=== PATIENT | female | born 1935 | race Caucasian/White ===

== ENCOUNTER → 2017-04-25 | Outpatient (CLI) | payer MEDICARE ==
[~2017-04-25] MED LIST: CALAN,ISOPTIN80 MG; CARDIZEM120 MG PO; CIPROFLOXACIN500 MG PO; COMPAZINE10 MG PO; COREG12.5 MG PO; COREG25 MG PO; COREG3.125 MG PO; CYMBALTA30 MG PO; ENALAPRIL MALEAT5 MG PO; ENALAPRIL10 MG PO; GLYBURIDE5 MG PO; HUMALOG100 U/ML SC; LEVEMIR10 ML SC; LIDODERM 5% PATC1 EA T; LIPITOR10 MG PO; LIPITOR40 MG PO; METFORMIN1000 MG PO; METFORMIN500 MG; Motrin,Rufen400 MG PO; PLAVIX75 MG PO; POTASSIUM CHLO10 MEQ PO; REMERON15 M2 PO; RESTORIL15 MG PO; TRAMADOL HCL50 MG PO; TRAMADOL50 MG PO; ULTRAM50 MG PO; VERAPAMIL120 MG PO; VITAMIN D2000 IU PO; VITAMIN D50000 I3 PO; XANAX0.25 MG PO; ZYVOX600 MG PO
== END | disposition home or self-care (01) ==
LOC: US 14:30
DX: N93.9 Abnormal uterine and vaginal bleeding, unspecified (principal); N95.0 Postmenopausal bleeding

== ENCOUNTER → 2017-05-09 | Outpatient (CLI) | payer MEDICARE | END | disposition home or self-care (01) | LOC: RAD 12:21 | DX: M81.0 Age-related osteoporosis without current pathological fracture (principal) ==

== ENCOUNTER 2017-05-24 07:12 | Emergency (ER) | payer MEDICARE ==
[2017-05-24 07:44] LABS: BASO % 0.2 % (0.0-1.0); EOS # 0.1 10*3/uL (0.0-0.4); EOS % 1.6 % (1.0-4.0); HEMATOCRIT 37.3 % (37.0-47.0); HEMOGLOBIN 12.7 g/dl (12.0-16.0); LYMPH # 1.1 10*3/uL (1.3-4.4); LYMPH % 13.3 % (27.0-41.0); MEAN CELL VOLUME 94.4 fl (81.0-99.0); MEAN CORPUSCULAR HGB 32.2 pg (27.0-31.0); MEAN PLATELET VOLUME 8.9 fl (9.6-12.3); MONO # 0.6 10*3/uL (0.1-1.0); MONO % 7.7 % (3.0-9.0); NEUT # 6.3 10*3/uL (2.3-7.9); NEUT % 76.7 % (47.0-73.0); PLATELET COUNT AUTOMATED 193 10*3/uL (130-400); RED BLOOD COUNT 3.95 10*6/uL (4.10-5.10); RED CELL DISTRI WIDTH 12.9 % (0-14.5); WHITE BLOOD COUNT 8.2 10*3/uL (4.8-10.8)
[2017-05-24 08:01] LABS: BUN 10 mg/dl (7-24); CHLORIDE 100 mmol/L (98-107); CREATININE 0.66 mg/dL (0.55-1.02); MAGNESIUM 1.5 mg/dL (1.5-2.1); POTASSIUM 3.6 mmol/L (3.5-5.1); SODIUM 136 mmol/L (136-145)
== END 2017-05-24 08:45 ==
LOC: ED 07:12
PROVIDERS: Emergency Medicine
DX: G25.2 Other specified forms of tremor (principal); I25.10 Atherosclerotic heart disease of native coronary artery without angina pectoris; G89.4 Chronic pain syndrome; M19.90 Unspecified osteoarthritis, unspecified site; E11.9 Type 2 diabetes mellitus without complications; I10 Essential (primary) hypertension; I35.0 Nonrheumatic aortic (valve) stenosis; Z95.5 Presence of coronary angioplasty implant and graft; Z98.890 Other specified postprocedural states; Z79.899 Other long term (current) drug therapy; Z88.5 Allergy status to narcotic agent; Z88.0 Allergy status to penicillin; Z79.4 Long term (current) use of insulin

== ENCOUNTER 2017-07-01 09:34 | Emergency (ER) | payer MEDICARE ==
[~2017-07-01] VITALS: Ht 167.6 cm
[2017-07-01] MEDS ORDERED: EPIPEN 2-P0.3 MG/0.3 IJ (10:03)
[2017-07-01] MEDS ORDERED: PREDNISONE10 MG PO (10:04)
== END 2017-07-01 14:22 | disposition home or self-care (01) ==
LOC: ED 09:34
DX: T78.3XXA Angioneurotic edema, initial encounter (principal); R03.0 Elevated blood-pressure reading, without diagnosis of hypertension; Z88.0 Allergy status to penicillin; Z88.1 Allergy status to other antibiotic agents; Z79.899 Other long term (current) drug therapy

== ENCOUNTER 2017-11-17 06:56 | Inpatient (IN) | payer MEDICARE ==
[~2017-11-17] VITALS: Ht 167.6 cm; Wt 98.7 kg
[~2017-11-17 06:56] MED LIST changes: +EPIPEN 2-P0.3 MG/0.3 IJ; -LEVEMIR10 ML SC; +LEVEMIR100 UNIT/1 SC; +PREDNISONE10 MG PO; +TAMIFLU30 MG PO
[2017-11-17 06:58] VITALS: BP 147/65
[2017-11-17 07:00] VITALS: BP 147/65
[2017-11-17 07:30] VITALS: BP 137/64
[2017-11-17 07:41] LABS: BASO % 0.2 % (0.0-1.0); EOS # 0.1 10*3/uL (0.0-0.4); EOS % 2.2 % (1.0-4.0); HEMATOCRIT 38.7 % (37.0-47.0); LYMPH # 1.3 10*3/uL (1.3-4.4); LYMPH % 23.3 % (27.0-41.0); MEAN CELL VOLUME 93.5 fl (81.0-99.0); MEAN CORPUSCULAR HGB 31.4 pg (27.0-31.0); MEAN CORPUSCULAR HGB CONC 33.6 g/dl (33.0-37.0); MONO # 0.5 10*3/uL (0.1-1.0); MONO % 9.3 % (3.0-9.0); NEUT # 3.5 10*3/uL (2.3-7.9); NEUT % 64.8 % (47.0-73.0); PLATELET COUNT AUTOMATED 229 10*3/uL (130-400); RED BLOOD COUNT 4.14 10*6/uL (4.10-5.10); RED CELL DISTRI WIDTH 13.4 % (0-14.5); WHITE BLOOD COUNT 5.4 10*3/uL (4.8-10.8)
[2017-11-17 07:50] LABS: ACT PARTIAL THROMBO TIME 29.6 SECONDS (20.8-31.5)
[2017-11-17 07:53] LABS: ALBUMIN 3.3 gm/dl (3.1-4.5); CREATININE 2.26 mg/dL (0.55-1.02); POTASSIUM 5.2 mmol/L (3.5-5.1); TOTAL PROTEIN 7.5 gm/dL (6.4-8.2)
[2017-11-17 07:56] LABS: TROPONIN I 0.102 ng/ml (<0.045)
[2017-11-17 10:16] VITALS: BP 147/68; BP 147/82
[2017-11-17 16:00] VITALS: BP 121/46
[2017-11-17] MEDS ORDERED: ANTACID SUSPEN355 M1 PO (18:06)
[2017-11-17] MEDS ORDERED: ATIVAN0.5 MG PO (18:07)
[2017-11-17] MEDS ORDERED: DUONEB 3 MG/3 ML3 M1 INH (18:08)
[2017-11-17] MEDS ORDERED: FOSAMAX70 M1 PO (18:10)
[2017-11-17] MEDS ORDERED: HUMALOG100 UNIT/2 SQ (18:11)
[2017-11-17] MEDS ORDERED: INVANZ1 GM/50 ML IM (18:15)
[2017-11-17] MEDS ORDERED: LOSARTAN POTASS25 M1 PO (18:17)
[2017-11-17] MEDS ORDERED: MILK OF MA400 MG/5 M PO (18:19)
[2017-11-17] MEDS ORDERED: MIRALAX119 GM PO (18:21)
[2017-11-17] MEDS ORDERED: Oscal,Oyster S500 MG PO (18:22)
[2017-11-17] MEDS ORDERED: ROBITUSSIN-DM 110 ML PO (18:24)
[2017-11-17] MEDS ORDERED: THERA-D4000 UNIT PO (18:29)
[2017-11-17] MEDS ORDERED: SIMVASTATIN20 MG PO (18:30)
[2017-11-17 20:00] VITALS: BP 125/54
[2017-11-18 00:04] VITALS: BP 134/51
[2017-11-18 05:51] LABS: BASO % 0.2 % (0.0-1.0); EOS # 0.1 10*3/uL (0.0-0.4); EOS % 1.8 % (1.0-4.0); HEMATOCRIT 35.4 % (37.0-47.0); HEMOGLOBIN 12.2 g/dl (12.0-16.0); LYMPH # 1.4 10*3/uL (1.3-4.4); LYMPH % 24.3 % (27.0-41.0); MEAN CELL VOLUME 91.7 fl (81.0-99.0); MEAN CORPUSCULAR HGB 31.6 pg (27.0-31.0); MEAN CORPUSCULAR HGB CONC 34.5 g/dl (33.0-37.0); MEAN PLATELET VOLUME 8.7 fl (9.6-12.3); MONO # 0.6 10*3/uL (0.1-1.0); MONO % 11.3 % (3.0-9.0); NEUT # 3.5 10*3/uL (2.3-7.9); NEUT % 62.2 % (47.0-73.0); PLATELET COUNT AUTOMATED 212 10*3/uL (130-400); RED BLOOD COUNT 3.86 10*6/uL (4.10-5.10); RED CELL DISTRI WIDTH 13.5 % (0-14.5); WHITE BLOOD COUNT 5.6 10*3/uL (4.8-10.8)
[2017-11-18 06:25] LABS: POTASSIUM 4.5 mmol/L (3.5-5.1)
[2017-11-18 06:35] LABS: CREATININE 1.58 mg/dL (0.55-1.02); FREE T4 1.09 ng/dl (0.76-1.46); THYROID STIM HORMONE (HS) 2.46 uIU/ml (0.358-4.75); TOTAL PROTEIN 6.8 gm/dL (6.4-8.2)
[2017-11-18 07:54] LABS: VITAMIN D, 25-HYDROXY 25.3 ng/mL (30-100)
[2017-11-18 08:00] VITALS: BP 150/54
[2017-11-18 12:00] VITALS: BP 130/62
[2017-11-18 16:00] VITALS: BP 138/82
[2017-11-18 20:00] VITALS: BP 134/62
[2017-11-19 00:07] VITALS: BP 155/50
[2017-11-19 06:03] LABS: BASO % 0.2 % (0.0-1.0); EOS # 0.1 10*3/uL (0.0-0.4); EOS % 1.2 % (1.0-4.0); HEMATOCRIT 33.8 % (37.0-47.0); HEMOGLOBIN 11.8 g/dl (12.0-16.0); LYMPH # 1.4 10*3/uL (1.3-4.4); LYMPH % 27.7 % (27.0-41.0); MEAN CELL VOLUME 91.8 fl (81.0-99.0); MEAN CORPUSCULAR HGB 32.1 pg (27.0-31.0); MEAN CORPUSCULAR HGB CONC 34.9 g/dl (33.0-37.0); MEAN PLATELET VOLUME 8.8 fl (9.6-12.3); MONO # 0.7 10*3/uL (0.1-1.0); MONO % 12.9 % (3.0-9.0); NEUT % 57.6 % (47.0-73.0); PLATELET COUNT AUTOMATED 209 10*3/uL (130-400); RED BLOOD COUNT 3.68 10*6/uL (4.10-5.10); RED CELL DISTRI WIDTH 13.4 % (0-14.5); WHITE BLOOD COUNT 5.1 10*3/uL (4.8-10.8)
[2017-11-19 06:36] LABS: ALKALINE PHOSPHATASE 74 U/L (45-117); CHLORIDE 105 mmol/L (98-107); CREATININE 0.89 mg/dL (0.55-1.02); POTASSIUM 4.1 mmol/L (3.5-5.1); SGOT/AST 22 IU/L (3-35); SGPT/ALT 17 U/L (12-78); SODIUM 139 mmol/L (136-145); TOTAL PROTEIN 6.7 gm/dL (6.4-8.2)
[2017-11-19 06:45] LABS: BUN 25 mg/dl (7-24)
[2017-11-19 08:00] VITALS: BP 138/61
[2017-11-19 12:00] VITALS: BP 145/79
[2017-11-19 16:00] VITALS: BP 145/63
[2017-11-19 20:00] VITALS: BP 124/49
[2017-11-20] VITALS: BP 144/67
[2017-11-20 08:00] VITALS: BP 134/40
[2017-11-20 12:00] VITALS: BP 114/83
[2017-11-20] MEDS ORDERED: TAMIFLU 75MG CA75 MG PO (12:42)
[2017-11-20] MEDS ORDERED: AZITHROMYCIN500 M2 PO (12:42)
== END 2017-11-20 15:35 | disposition other institution (70) | DRG 682 ==
LOC: ED 06:56 → 4E 08:43 → EDHOLD 08:43 → 4E 09:00
PROVIDERS: Emergency Medicine; Internal Medicine; Registered Nurse
DX: N17.9 Acute kidney failure, unspecified (principal); J10.00 Influenza due to other identified influenza virus with unspecified type of pneumonia; E11.65 Type 2 diabetes mellitus with hyperglycemia; I24.8 Other forms of acute ischemic heart disease; E87.5 Hyperkalemia; E87.1 Hypo-osmolality and hyponatremia; E83.51 Hypocalcemia; E86.0 Dehydration; F33.9 Major depressive disorder, recurrent, unspecified; I35.0 Nonrheumatic aortic (valve) stenosis; F41.9 Anxiety disorder, unspecified; I25.10 Atherosclerotic heart disease of native coronary artery without angina pectoris; M19.90 Unspecified osteoarthritis, unspecified site; K59.00 Constipation, unspecified; G89.4 Chronic pain syndrome; K57.30 Diverticulosis of large intestine without perforation or abscess without bleeding; I10 Essential (primary) hypertension; R74.8 Abnormal levels of other serum enzymes; Z88.6 Allergy status to analgesic agent; Z88.0 Allergy status to penicillin; Z88.1 Allergy status to other antibiotic agents; Z90.49 Acquired absence of other specified parts of digestive tract; Z87.440 Personal history of urinary (tract) infections; Z95.5 Presence of coronary angioplasty implant and graft; Z82.5 Family history of asthma and other chronic lower respiratory diseases; I25.2 Old myocardial infarction; Z79.899 Other long term (current) drug therapy; Z79.02 Long term (current) use of antithrombotics/antiplatelets; Z79.52 Long term (current) use of systemic steroids; Z79.4 Long term (current) use of insulin

== ENCOUNTER 2017-12-06 18:41 | Inpatient (IN) | payer MEDICARE, MEDICAID ==
[~2017-12-06] VITALS: Ht 167.6 cm; Wt 99.0 kg
--- NOTE | ~2017-12-06 | CON ---
[place], [place] REPORT OF CONSULTATION [id number] UNIT #: [id number] ROOM: 419 DOCTOR: ALFIE ALLEN MD BIRTHDATE: [birth year] DOS: 12/07/2017 HISTORY OF PRESENT ILLNESS: This is an 82-year-old [place] woman who [facility]. Her physical condition has deteriorated over the last few years. She has coronary artery disease and LAD, was stented many years ago and she had in-stent restenosis, which was addressed with angioplasty and a stent. She had stenting of obtuse marginal branch of the circumflex as well. She had normal LV systolic function. She was admitted through the emergency department. She was sitting in the bathroom and had called for assistance by ringing the morse, fell to the right side and to the ground. She hit her head against a drawer. She has some back pain now, which is chronic. In fact, she did not feel any palpitations. Did not have any chest pain or dizziness, noted that she had lightheadedness and there is no nausea either. She was not confused afterwards. She did not lose consciousness. There has not been any previous recent chest pain or breathing difficulty or palpitations. She has not had any swelling in the legs. I was asked to see him because of a mildly elevated troponin I level. PAST MEDICAL HISTORY: Include mild aortic stenosis, diabetes mellitus, essential hypertension, major depression, coronary artery disease as described above, previous loss of consciousness and anxiety. SOCIAL HISTORY: She does not smoke nor does she drink alcoholic beverages. HOME MEDICATIONS: Included DuoNeb, Tylenol, Fosamax, calcium, vitamin D3, clopidogrel 75 daily, losartan 25 daily, mag hydroxide p.r.n. She is also on potassium chloride, simvastatin, tramadol, and insulin/Levemir and Humalog. PHYSICAL EXAMINATION: GENERAL: This is a patient who is alert. Her complexion is fine. She is not diaphoretic. Temperature is normal, pulse is 80 regular. Blood pressure 140/60. NECK: JVP is normal. There is no bruit in the neck. HEART: There is no cardiomegaly, no murmurs are present. Pedal pulses are appreciated. EXTREMITIES: There is no edema in the lower extremity. LUNGS: Clear to auscultation. LABORATORY DATA: ECG showed normal sinus rhythm and left bundle branch block. Troponin I level was 0.167 yesterday, and the next two numbers were 0.179, 0.172. IMPRESSION: This patient with coronary artery disease, had fallen without any cardiac symptoms and incidental finding of elevated troponin level was noted and there has not been any particular trend in the levels. It is not clear what is causing this. Her renal function is fine and she is not hypertensive, nor does she have any tachycardia. I still think this may be type 2 myocardial [place], [place] REPORT OF CONSULTATION NAME: SARAH OLIVAS UNIT #: [id number] ROOM: 419 DOCTOR: ALFIE ALLEN MD BIRTHDATE: [birth year] infarction. She is currently on clopidogrel, simvastatin and aspirin. If heart rate can tolerate a small dose of beta praful, would be a good idea. I am not in favor of doing any cardiac workup in this patient. An echocardiogram was done earlier today, and Dr. Thrsaher read it and it showed normal LV systolic function and normal wall motion. ALFIE ALLEN MD CM:CONSTR:REPORT OF CONSULTATION 17 12/07/17 2019 interface
[2017-12-06 18:41] VITALS: BP 122/80
[~2017-12-06 18:41] MED LIST changes: +ANTACID SUSPEN355 M1 PO; +ATIVAN0.5 MG PO; +AZITHROMYCIN500 M2 PO; +DUONEB 3 MG/3 ML3 M1 INH; +FOSAMAX70 M1 PO; +HUMALOG100 UNIT/2 SQ; +INVANZ1 GM/50 ML IM; +LOSARTAN POTASS25 M1 PO; +MILK OF MA400 MG/5 M PO; +MIRALAX119 GM PO; +Oscal,Oyster S500 MG PO; +ROBITUSSIN-DM 110 ML PO; +SIMVASTATIN20 MG PO; +TAMIFLU 75MG CA75 MG PO; +THERA-D4000 UNIT PO
[2017-12-06 19:53] VITALS: BP 144/85
[2017-12-06 20:25] VITALS: BP 144/63
[2017-12-06 20:26] LABS: BASO % 0.5 % (0.0-1.0); EOS # 0.2 10*3/uL (0.0-0.4); EOS % 2.9 % (1.0-4.0); HEMATOCRIT 35.6 % (37.0-47.0); HEMOGLOBIN 11.9 g/dl (12.0-16.0); LYMPH # 1.8 10*3/uL (1.3-4.4); LYMPH % 28.6 % (27.0-41.0); MEAN CELL VOLUME 94.2 fl (81.0-99.0); MEAN CORPUSCULAR HGB 31.5 pg (27.0-31.0); MEAN CORPUSCULAR HGB CONC 33.4 g/dl (33.0-37.0); MEAN PLATELET VOLUME 9.1 fl (9.6-12.3); MONO # 0.8 10*3/uL (0.1-1.0); MONO % 12.3 % (3.0-9.0); NEUT # 3.4 10*3/uL (2.3-7.9); NEUT % 55.5 % (47.0-73.0); PLATELET COUNT AUTOMATED 283 10*3/uL (130-400); RED BLOOD COUNT 3.78 10*6/uL (4.10-5.10); RED CELL DISTRI WIDTH 13.5 % (0-14.5); WHITE BLOOD COUNT 6.2 10*3/uL (4.8-10.8)
[2017-12-06 20:36] LABS: ACT PARTIAL THROMBO TIME 26.7 SECONDS (20.8-31.5)
[2017-12-06 20:43] LABS: ALBUMIN 3.2 gm/dl (3.1-4.5); ALKALINE PHOSPHATASE 69 U/L (45-117); BUN 10 mg/dl (7-24); CHLORIDE 102 mmol/L (98-107); POTASSIUM 4.1 mmol/L (3.5-5.1); SGOT/AST 16 IU/L (3-35); SGPT/ALT 17 U/L (12-78); SODIUM 138 mmol/L (136-145); TOTAL PROTEIN 6.7 gm/dL (6.4-8.2)
[2017-12-06 21:21] VITALS: BP 141/72
[2017-12-06 22:13] VITALS: BP 141/72
[2017-12-07] VITALS: BP 125/69
[2017-12-07] MEDS ORDERED: MAPAP EXTRA ST500 MG PO (00:33)
[2017-12-07] MEDS ORDERED: ONDANSETRON HYDR4 MG PO (00:34)
[2017-12-07 04:10] LABS: BASO % 0.6 % (0.0-1.0); EOS # 0.2 10*3/uL (0.0-0.4); EOS % 2.4 % (1.0-4.0); HEMOGLOBIN 11.9 g/dl (12.0-16.0); LYMPH # 1.9 10*3/uL (1.3-4.4); MEAN CELL VOLUME 93.8 fl (81.0-99.0); MEAN CORPUSCULAR HGB 31.9 pg (27.0-31.0); MONO % 13.6 % (3.0-9.0); NEUT # 4.1 10*3/uL (2.3-7.9); NEUT % 57.1 % (47.0-73.0); PLATELET COUNT AUTOMATED 248 10*3/uL (130-400); RED BLOOD COUNT 3.73 10*6/uL (4.10-5.10); RED CELL DISTRI WIDTH 13.6 % (0-14.5); WHITE BLOOD COUNT 7.2 10*3/uL (4.8-10.8)
[2017-12-07 04:36] LABS: ALBUMIN 3.2 gm/dl (3.1-4.5); ALKALINE PHOSPHATASE 63 U/L (45-117); BUN 10 mg/dl (7-24); CHLORIDE 104 mmol/L (98-107); CREATININE 0.78 mg/dL (0.55-1.02); PHOSPHOROUS 3.4 mg/dL (2.5-4.9); POTASSIUM 4.2 mmol/L (3.5-5.1); SGOT/AST 15 IU/L (3-35); SGPT/ALT 14 U/L (12-78); SODIUM 140 mmol/L (136-145); TOTAL PROTEIN 6.6 gm/dL (6.4-8.2)
[2017-12-07 08:00] VITALS: BP 141/63
[2017-12-07 09:14] LABS: BILIRUBIN NEGATIVE (NEGATIVE); BLOOD 3+ (NEGATIVE); CLARITY CLOUDY (CLEAR); COLOR YELLOW (YELLOW); GLUCOSE NEGATIVE (NEGATIVE); KETONE TRACE (NEGATIVE); LEUKO ESTERASE 2+ (NEGATIVE); NITRITE NEGATIVE (NEGATIVE); SPECIFIC GRAVITY >= 1.030 (1.005-1.030); UROBILINOGEN 0.2 E.U./dl (0.2-1.0)
[2017-12-07 09:22] LABS: WBC TNTC wbc/hpf (0-5)
[2017-12-07 09:23] LABS: RBC TNTC rbc/hpf (0-2)
[2017-12-07 12:00] VITALS: BP 164/72
[2017-12-07 16:00] VITALS: BP 143/60
[2017-12-07 20:00] VITALS: BP 140/62
[2017-12-08] VITALS: BP 108/65
[2017-12-08 05:14] LABS: HEMATOCRIT 34.2 % (37.0-47.0); HEMOGLOBIN 11.2 g/dl (12.0-16.0); MEAN CELL VOLUME 96.3 fl (81.0-99.0); MEAN CORPUSCULAR HGB 31.5 pg (27.0-31.0); MEAN CORPUSCULAR HGB CONC 32.7 g/dl (33.0-37.0); MEAN PLATELET VOLUME 9.1 fl (9.6-12.3); PLATELET COUNT AUTOMATED 211 10*3/uL (130-400); RED BLOOD COUNT 3.55 10*6/uL (4.10-5.10); RED CELL DISTRI WIDTH 13.8 % (0-14.5); WHITE BLOOD COUNT 6.9 10*3/uL (4.8-10.8)
[2017-12-08 05:28] LABS: ALBUMIN 2.6 gm/dl (3.1-4.5); ALKALINE PHOSPHATASE 58 U/L (45-117); BUN 12 mg/dl (7-24); CHLORIDE 108 mmol/L (98-107); CREATININE 0.76 mg/dL (0.55-1.02); POTASSIUM 4.2 mmol/L (3.5-5.1); SGOT/AST 16 IU/L (3-35); SGPT/ALT 13 U/L (12-78); SODIUM 140 mmol/L (136-145); TOTAL PROTEIN 5.7 gm/dL (6.4-8.2)
[2017-12-08 05:38] LABS: PLATELET SUFFICIENCY NORMAL (NORMAL); TOTAL CELLS COUNTED 100 #CELLS
[2017-12-08 08:00] VITALS: BP 151/65
[2017-12-08 12:00] VITALS: BP 154/90
[2017-12-08] MEDS ORDERED: Insulin Lispro, Reco SC (12:34)
[2017-12-08] MEDS ORDERED: NYSTOP60 GM T (12:34)
[2017-12-08] MEDS ORDERED: SEPTDS PO (12:35)
== END 2017-12-08 14:09 | disposition other institution (70) | DRG 556 ==
LOC: ED 18:41 → EDHOLD 20:58 → 4E 20:58
PROVIDERS: Internal Medicine; Physician Assistant
DX: M25.511 Pain in right shoulder (principal); E87.2 Acidosis; E44.0 Moderate protein-calorie malnutrition; E11.65 Type 2 diabetes mellitus with hyperglycemia; E83.42 Hypomagnesemia; I07.1 Rheumatic tricuspid insufficiency; I50.32 Chronic diastolic (congestive) heart failure; F33.9 Major depressive disorder, recurrent, unspecified; M79.604 Pain in right leg; I11.0 Hypertensive heart disease with heart failure; D64.9 Anemia, unspecified; R74.8 Abnormal levels of other serum enzymes; Z79.4 Long term (current) use of insulin; M15.9 Polyosteoarthritis, unspecified; I25.10 Atherosclerotic heart disease of native coronary artery without angina pectoris; G25.2 Other specified forms of tremor; F41.9 Anxiety disorder, unspecified; I35.0 Nonrheumatic aortic (valve) stenosis; G89.4 Chronic pain syndrome; E66.9 Obesity, unspecified; Z95.5 Presence of coronary angioplasty implant and graft; Z87.81 Personal history of (healed) traumatic fracture; Z90.49 Acquired absence of other specified parts of digestive tract; Z88.6 Allergy status to analgesic agent; Z88.1 Allergy status to other antibiotic agents; Z88.0 Allergy status to penicillin; Z88.8 Allergy status to other drugs, medicaments and biological substances; Z79.899 Other long term (current) drug therapy; Z68.35 Body mass index [BMI] 35.0-35.9, adult; W18.39XA Other fall on same level, initial encounter; Y93.89 Activity, other specified; Y92.89 Other specified places as the place of occurrence of the external cause; Y99.8 Other external cause status; I34.0 Nonrheumatic mitral (valve) insufficiency

== ENCOUNTER 2018-01-17 17:19 | Inpatient (IN) | payer MEDICARE, MEDICAID ==
[~2018-01-17] VITALS: Ht 167.6 cm; Wt 93.6 kg
--- NOTE | ~2018-01-17 | EKG ---
[place], [place] ELECTROCARDIOGRAM REPORT NAME: SARAH OLIVAS UNIT #: [id number] ROOM: 406 DOCTOR: ALFIE ALLEN MD BIRTHDATE: [birth year] DOS: 01/17/2018 TIME: 1732 hours. FINDINGS: 1. Probably sinus tachycardia at 106 beats per minute. 2. Complete left bundle-branch block. 3. No previous tracing is available for comparison. ALFIE ALLEN MD CM:EKGRPT:ELECTROCARDIOGRAM REPORT 1700 1811 ALFIE ALLEN MD
--- NOTE | ~2018-01-17 | PR ---
[place], [place] PROGRESS NOTE NAME: SARAH OLIVAS [facility] #: [id number] UNIT #: [id number] ROOM: [facility] DOCTOR: ALFIE ALLEN MD BIRTHDATE: [birth year] DOS: SUBJECTIVE: She feels from reasonably well, does not have any chest pain, no breathing difficulty. Some harsh cough without expectoration. No fever or chills. OBJECTIVE: GENERAL: The patient was morbidly obese. VITAL SIGNS: Pulse is regular at 80 beats per minute, blood pressure 105/76. NECK: JVP is normal. LUNGS: Breath sounds are diminished with some rhonchi and crackles. EXTREMITIES: Feet are warm. No edema of the lower extremities. LABORATORY DATA: An echocardiogram done yesterday demonstrated an LV ejection fraction of 40%. An echocardiogram couple of years ago had been read as showing an EF of 45-50%, i.e. no significant different IMPRESSION AND PLAN: 1. This patient has acute chest infection. 2. Coronary artery disease with possible non-ST elevation myocardial infarction, but this may be type 2 acute myocardial infarction. 3. She is fairly stable. I think she can be managed medically with statin ____, CHINTAN inhibitor, beta praful and oral nitrates. 4. An echocardiogram shows moderately severe mitral aortic stenosis with a peak gradient of 55 and mean gradient of 32 mmHg. Images not of very good quality; therefore, aortic valve area could not be calculated. ALFIE ALLEN MD CM:PNTRANS 1200 1401 ALFIE ALLEN MD 01/20/18 0019 interface
--- NOTE | ~2018-01-17 | PR ---
[place], [place] PROGRESS NOTE [id number] UNIT #: [id number] ROOM: 406 DOCTOR: ALFIE ALLEN MD BIRTHDATE: [birth year] DOS: 01/22/2018 SUBJECTIVE: She has no chest pain or palpitations. Her appetite is fine. Breathing is okay as well. OBJECTIVE: GENERAL: She appeared to be in good mood. Complexion is nice and pink. VITAL SIGNS: Temperature is normal, pulse is 88 regular, blood pressure 118/51. NECK: Normal JVP. LUNGS: She has some crackles in the lower zones. EXTREMITIES: No edema in lower extremities. Legs are rather large. Monitor shows sinus rhythm with bundle branch block. Chest x-ray was reviewed and shows mild pulmonary congestion. IMPRESSION: This patient has coronary disease and possibly has had a NSTEMI, but also could be type 2 myocardial infarction. She is pretty stable. I think a dose of furosemide would be a good idea to see if pulmonary congestion improves. ALFIE ALLEN MD CM:PNTRANS 1805 50 ALFIE ALLEN MD 01/22/18 225 interface
--- NOTE | ~2018-01-17 | CON ---
[place], [place] REPORT OF CONSULTATION [id number] UNIT #: [id number] ROOM: [facility] DOCTOR: ALFIE ALLEN MD BIRTHDATE: [birth year] DOS: 01/18/2018 HISTORY OF PRESENT ILLNESS: This is an 82-year-old -Japanese woman with a history of coronary artery disease, who has had coronary stents deployed and LAD with in-stent restenosis, which was angioplastied successfully. She has had stenting of the obtuse marginal branch of the circumflex as well. Her LV function has been normal. She was admitted to the Emergency Department. She had acute shortness of breath and she sweated as well before admission. She had no chills or shivering. She has very little cough. She did not have any chest pain or heaviness in the chest, nor did have any palpitations. She had no loss of consciousness, has not had any swelling in the legs. She does not walk because of physical disability. PAST MEDICAL HISTORY: Includes coronary artery disease, diabetes mellitus, mild aortic stenosis, essential hypertension, major depression. She has chronic pain syndrome and osteoporosis of the spine. HOME MEDICATIONS: Include DuoNeb, Fosamax, Os-Jaya, vitamin D3, Plavix 75 daily, Cymbalta 30 mg daily, losartan 25 daily, potassium chloride 10 mEq daily, simvastatin 20 daily, tramadol 50 q. 6 h. p.r.n., /Levemir and insulin lispro. PHYSICAL EXAMINATION: GENERAL: This is a patient who is moderately obese. She is pleasant and alert. She has oxygen on and she has no tachypnea. Her complexion is fine. No finger clubbing. VITAL SIGNS: Pulse is 84 and regular, blood pressure 111/53. NECK: Normal JVP. HEART: There is grade 3/6-4/6 cooing murmur over the apex and also murmur over the aortic area. Aortic sound is barely audible. EXTREMITIES: There is no edema in the lower extremities. RESPIRATORY: She is not tachypneic. Auscultation reveals fairly decent breath sounds with fine crackles in the lower zones. DIAGNOSTIC STUDIES: An ECG showed normal sinus rhythm with complete left bundle-branch block. Chest x-ray demonstrated no pulmonary edema. CT scan showed some consolidation that is suggestive of pneumonia. Troponin I level was 0.729 and nolan to 0.847. In the past, her troponin I level had been chronically elevated around 0.2. BUN 11, creatinine , magnesium 1.5. Hemoglobin is 10.1 g/dL, MCV 101. IMPRESSION: 1. Mildly elevated troponin I level is noted. She has coronary artery disease and has chronically elevated troponin I level, although this is a little more than previous numbers. There is a small possibility of an acute myocardial infarction; however, I think her pneumonia, anemia may be responsible for [place], [place] REPORT OF CONSULTATION NAME: SARAH OLIVAS UNIT #: [id number] ROOM: [facility] DOCTOR: ALFIE ALLEN MD BIRTHDATE: [birth year] somewhat increased level of troponin I level. 2. Pneumonia. 3. Moderate anemia. RECOMMENDATIONS: I think for the time being, continue treating her for pneumonia and at this time, I do not recommend any cardiac workup, perhaps one can perform Lexiscan Cardiolite study at a later date, i.e., pneumonia has improved and if there is significant ischemic burden, then consider a diagnostic heart cath. Dose of carvedilol will be increased to 6.25 mg b.i.d. and adding long-acting nitrate such as isosorbide mononitrate, this is a good idea and will be started. I thank you for this consult. ALFIE ALLEN MD CM:CONSTR:REPORT OF CONSULTATION 1741 01/18/18 7095 interface
--- NOTE | ~2018-01-17 | EKG ---
[place], [place] ELECTROCARDIOGRAM REPORT NAME: SARAH OLIVAS UNIT #: [id number] ROOM: 406 DOCTOR: ALFIE ALLEN MD BIRTHDATE: [birth year] DOS: 01/20/2018 TIME: 1800 hours. FINDINGS: 1. Normal sinus rhythm at 86 beats per minute. 2. Complete left bundle-branch block. 3. No significant change from an ECG done on 01/17/2018. ALFIE ALLEN MD CM:EKGRPT:ELECTROCARDIOGRAM REPORT 1700 1815 ALFIE ALLEN MD
--- NOTE | ~2018-01-17 | PR ---
[place], [place] PROGRESS NOTE [id number] UNIT #: [id number] ROOM: [facility] DOCTOR: ALFIE ALLEN MD BIRTHDATE: [birth year] DOS: 01/21/2018 SUBJECTIVE: She had been getting IV fluids and eating and drinking adequately and apparently became somewhat volume overloaded, very tachypneic. IV fluids were discontinued. She received IV loop diuretic that resulted in excellent diuresis. Her breathing is fine. Now, she does not have any chest pain related to cough and no palpitation. She feels tired and lethargic. PHYSICAL EXAMINATION GENERAL: The patient who looks pale, somewhat lethargic. VITAL SIGNS: Pulse is 88 regular, blood pressure 133/45. NECK: Normal JVP. LUNGS: She has crackles in both lungs, but very few. EXTREMITIES: No edema in lower extremities. LABORATORY DATA: Monitor shows regular rhythm with bundle-branch block. This patient does have coronary artery disease, but her troponin elevation is most likely not due to coronary artery occlusion. She is very stable. Echocardiogram demonstrated an EF of about 40%, which she is not very different from 3 years ago when it was estimated to be 40%-45%. I do not have any other recommendation except that her heart rate needed to be controlled better. ALFIE ALLEN MD CM:PNTRANS 0924 1101 ALFIE ALLEN MD 01/21/18 1100 interface
--- NOTE | ~2018-01-17 | EKG ---
[place], [place] ELECTROCARDIOGRAM REPORT NAME: SARAH OLIVAS UNIT #: [id number] ROOM: [facility] DOCTOR: ALFIE ALLEN MD BIRTHDATE: [birth year] DOS: 01/18/2018 TIME: 0059 hours. FINDINGS: 1. Normal sinus rhythm at 83 beats per minute. 2. Complete left bundle-branch block. 3. No significant change from an ECG of the previous day. ALFIE ALLEN MD CM:EKGRPT:ELECTROCARDIOGRAM REPORT 1700 1812 ALFIE ALLEN MD
--- NOTE | ~2018-01-17 | EKG ---
[place], [place] ELECTROCARDIOGRAM REPORT NAME: SARAH OLIVAS UNIT #: [id number] ROOM: [facility] DOCTOR: ALFIE ALLEN MD BIRTHDATE: [birth year] DOS: 01/18/2018 TIME: 0736 hours. FINDINGS: 1. Normal sinus rhythm at 80 beats per minute. 2. Left bundle-branch block. 3. No significant change from an ECG done earlier in the day. ALFIE ALLEN MD CM:EKGRPT:ELECTROCARDIOGRAM REPORT 1700 1813 ALFIE ALLEN MD
--- NOTE | ~2018-01-17 | PR ---
[place], [place] PROGRESS NOTE NAME: SARAH OLIVAS UNIT #: [id number] ROOM: [facility] DOCTOR: ALFIE ALLEN MD BIRTHDATE: [birth year] DOS: 01/19/2018 ADDENDUM IMPRESSION: 1. An echocardiogram shows moderately severe mitral aortic stenosis with a peak gradient of 55 and mean gradient of 32 mmHg. Images not of very good quality; therefore, aortic valve area could not be calculated. ALFIE ALLEN MD CM:PNTRANS 1202 1357 ALFIE ALLEN MD 01/20/18 0019 interface
--- NOTE | ~2018-01-17 | PR ---
[place], [place] PROGRESS NOTE NAME: SARAH OLIVAS [facility] #: [id number] UNIT #: [id number] ROOM: 406 DOCTOR: LESLIE BROWN MD BIRTHDATE: [birth year] DOS: 01/23/2018 SUBJECTIVE: The patient seen by Dr. Shook yesterday. Cardiac status appears to be stable. OBJECTIVE: VITAL SIGNS: Blood pressure is 127/66. HEENT: Unremarkable. NECK: Supple, no JVD. LUNGS: Diminished breath sounds. HEART: Heart sounds are regular. LABORATORY DATA: Urine output is adequate and negative 60 mL, hemoglobin 11, hematocrit 34. Electrolytes are normal. Creatinine is normal. IMPRESSION: The patient with elevated troponin, tachycardia, neutrophilia and lymphopenia is probably type 2 myocardial infarction. The patient is stable at this point. PLAN: Continue the present care. She is hemodynamically stable. Increase activity and will follow up. LESLIE BROWN MD CM:PNTRANS 0757 0255 LESLIE BROWN MD 01/24/18 0254 interface
[~2018-01-17 17:19] MED LIST changes: +Insulin Lispro, Reco SC; +NYSTOP60 GM T; +ONDANSETRON HYDR4 MG PO; +PLAVIX75 M1 PO; -PLAVIX75 MG PO; +SEPTDS PO; -SIMVASTATIN20 MG PO; +TYLENOL325 M2 PO; +ZOCOR20 MG PO
[2018-01-17 17:30] VITALS: BP 136/78
[2018-01-17 19:01] LABS: BASO % 0.3 % (0.0-1.0); EOS # 0.1 10*3/uL (0.0-0.4); EOS % 0.9 % (1.0-4.0); HEMATOCRIT 37.3 % (37.0-47.0); LYMPH % 8.4 % (27.0-41.0); MEAN CELL VOLUME 98.7 fl (81.0-99.0); MEAN CORPUSCULAR HGB 31.7 pg (27.0-31.0); MEAN CORPUSCULAR HGB CONC 32.2 g/dl (33.0-37.0); MEAN PLATELET VOLUME 9.2 fl (9.6-12.3); MONO # 0.7 10*3/uL (0.1-1.0); MONO % 6.2 % (3.0-9.0); NEUT # 9.7 10*3/uL (2.3-7.9); NEUT % 83.9 % (47.0-73.0); PLATELET COUNT AUTOMATED 332 10*3/uL (130-400); RED BLOOD COUNT 3.78 10*6/uL (4.10-5.10); RED CELL DISTRI WIDTH 14.6 % (0-14.5); WHITE BLOOD COUNT 11.5 10*3/uL (4.8-10.8)
[2018-01-17 19:11] LABS: ACT PARTIAL THROMBO TIME 26.5 SECONDS (20.8-31.5)
[2018-01-17 19:16] LABS: ALKALINE PHOSPHATASE 58 U/L (45-117); BUN 11 mg/dl (7-24); CHLORIDE 104 mmol/L (98-107); CREATININE 0.69 mg/dL (0.55-1.02); LIPASE 64 U/L (73-393); POTASSIUM 4.6 mmol/L (3.5-5.1); SGOT/AST 20 IU/L (3-35); SGPT/ALT 12 U/L (12-78); SODIUM 138 mmol/L (136-145); TOTAL PROTEIN 6.7 gm/dL (6.4-8.2)
[2018-01-17 19:24] LABS: TROPONIN I 0.288 ng/ml (<0.045)
[2018-01-17 23:12] VITALS: BP 129/98
[2018-01-18 01:30] VITALS: BP 116/71
[2018-01-18 04:00] VITALS: BP 104/80
[2018-01-18 05:03] LABS: BASO % 0.7 % (0.0-1.0); EOS # 0.2 10*3/uL (0.0-0.4); EOS % 2.6 % (1.0-4.0); HEMATOCRIT 32.4 % (37.0-47.0); HEMOGLOBIN 10.1 g/dl (12.0-16.0); LYMPH # 1.7 10*3/uL (1.3-4.4); LYMPH % 30.2 % (27.0-41.0); MEAN CELL VOLUME 101.3 fl (81.0-99.0); MEAN CORPUSCULAR HGB 31.6 pg (27.0-31.0); MEAN CORPUSCULAR HGB CONC 31.2 g/dl (33.0-37.0); MEAN PLATELET VOLUME 9.1 fl (9.6-12.3); MONO # 0.6 10*3/uL (0.1-1.0); MONO % 11.1 % (3.0-9.0); NEUT # 3.1 10*3/uL (2.3-7.9); NEUT % 55.2 % (47.0-73.0); PLATELET COUNT AUTOMATED 264 10*3/uL (130-400); RED CELL DISTRI WIDTH 14.5 % (0-14.5); WHITE BLOOD COUNT 5.7 10*3/uL (4.8-10.8)
[2018-01-18 05:16] LABS: BUN 10 mg/dl (7-24); CHLORIDE 102 mmol/L (98-107); CREATININE 0.66 mg/dL (0.55-1.02); POTASSIUM 4.6 mmol/L (3.5-5.1); SODIUM 137 mmol/L (136-145)
[2018-01-18 05:17] LABS: PHOSPHOROUS 2.9 mg/dL (2.5-4.9)
[2018-01-18 08:00] VITALS: BP 118/51
[2018-01-18 08:13] LABS: BILIRUBIN NEGATIVE (NEGATIVE); BLOOD 3+ (NEGATIVE); CLARITY TURBID (CLEAR); COLOR YELLOW (YELLOW); GLUCOSE NEGATIVE (NEGATIVE); KETONE TRACE (NEGATIVE); LEUKO ESTERASE 2+ (NEGATIVE); NITRITE NEGATIVE (NEGATIVE); PH 5.5 (5.0-9.0); SPECIFIC GRAVITY >= 1.030 (1.005-1.030); UROBILINOGEN 0.2 E.U./dl (0.2-1.0)
[2018-01-18 09:07] LABS: BACTERIA 4+; EPITHELIAL CELLS 40-50; RBC TNTC rbc/hpf (0-2); WBC TNTC wbc/hpf (0-5); YEAST 2+
[2018-01-18] MEDS ORDERED: TIZANIDINE HCL2 MG PO (10:08)
[2018-01-18 12:00] VITALS: BP 103/43
[2018-01-18 16:00] VITALS: BP 111/51
[2018-01-18 20:00] VITALS: BP 117/60
[2018-01-19] VITALS: BP 94/62
[2018-01-19 04:00] VITALS: BP 98/46
[2018-01-19 06:09] LABS: BASO % 0.5 % (0.0-1.0); EOS # 0.3 10*3/uL (0.0-0.4); EOS % 4.2 % (1.0-4.0); HEMATOCRIT 30.9 % (37.0-47.0); HEMOGLOBIN 9.7 g/dl (12.0-16.0); LYMPH # 1.1 10*3/uL (1.3-4.4); LYMPH % 17.5 % (27.0-41.0); MEAN CELL VOLUME 99.4 fl (81.0-99.0); MEAN CORPUSCULAR HGB 31.2 pg (27.0-31.0); MEAN CORPUSCULAR HGB CONC 31.4 g/dl (33.0-37.0); MEAN PLATELET VOLUME 9.4 fl (9.6-12.3); MONO # 0.7 10*3/uL (0.1-1.0); MONO % 11.3 % (3.0-9.0); NEUT # 4.3 10*3/uL (2.3-7.9); NEUT % 66.2 % (47.0-73.0); PLATELET COUNT AUTOMATED 269 10*3/uL (130-400); RED BLOOD COUNT 3.11 10*6/uL (4.10-5.10); RED CELL DISTRI WIDTH 14.4 % (0-14.5); WHITE BLOOD COUNT 6.5 10*3/uL (4.8-10.8)
[2018-01-19 06:34] LABS: BUN 10 mg/dl (7-24); CHLORIDE 102 mmol/L (98-107); CREATININE 0.62 mg/dL (0.55-1.02); POTASSIUM 4.1 mmol/L (3.5-5.1); SODIUM 137 mmol/L (136-145)
[2018-01-19 08:00] VITALS: BP 95/44
[2018-01-19 12:00] VITALS: BP 98/48
[2018-01-19 16:00] VITALS: BP 113/50
[2018-01-19 20:00] VITALS: BP 127/61
[2018-01-20] VITALS (11 sets, daily range): BP systolic 73–132; BP diastolic 31–75
[2018-01-20 05:58] LABS: BASO % 0.4 % (0.0-1.0); BUN 6 mg/dl (7-24); CHLORIDE 102 mmol/L (98-107); CREATININE 0.51 mg/dL (0.55-1.02); EOS # 0.4 10*3/uL (0.0-0.4); EOS % 7.4 % (1.0-4.0); HEMATOCRIT 33.1 % (37.0-47.0); HEMOGLOBIN 10.4 g/dl (12.0-16.0); LYMPH # 1.2 10*3/uL (1.3-4.4); LYMPH % 23.3 % (27.0-41.0); MEAN CELL VOLUME 99.7 fl (81.0-99.0); MEAN CORPUSCULAR HGB 31.3 pg (27.0-31.0); MEAN CORPUSCULAR HGB CONC 31.4 g/dl (33.0-37.0); MEAN PLATELET VOLUME 9.6 fl (9.6-12.3); MONO # 0.8 10*3/uL (0.1-1.0); MONO % 16.3 % (3.0-9.0); NEUT # 2.6 10*3/uL (2.3-7.9); NEUT % 52.4 % (47.0-73.0); PLATELET COUNT AUTOMATED 223 10*3/uL (130-400); RED BLOOD COUNT 3.32 10*6/uL (4.10-5.10); RED CELL DISTRI WIDTH 14.1 % (0-14.5); SODIUM 135 mmol/L (136-145)
[2018-01-20 06:00] LABS: VANCOMYCIN TROUGH 11.3 ug/mL (10-20)
[2018-01-20 17:54] LABS: ABG BASE EXCESS -2.1 mmol/L (-2.0-2.0); ABG HCO3 23.7 mmol/l (22-26); ABG O2 SATURATION 96.5 % (95-97); ARTERIAL BLOOD GAS PCO2 46.9 mmHg (35-45); ARTERIAL BLOOD GAS PH 7.322 (7.35-7.45); ARTERIAL BLOOD GAS PO2 85.8 mmHg (80-90)
[2018-01-20 18:18] LABS: BASO % 0.4 % (0.0-1.0); HEMOGLOBIN 10.8 g/dl (12.0-16.0); MEAN CORPUSCULAR HGB 31.5 pg (27.0-31.0); MEAN PLATELET VOLUME 9.7 fl (9.6-12.3); NEUT % 64.7 % (47.0-73.0); RED BLOOD COUNT 3.43 10*6/uL (4.10-5.10)
[2018-01-20 18:24] LABS: EOS # 0.3 10*3/uL (0.0-0.4); EOS % 4.9 % (1.0-4.0); HEMATOCRIT 33.8 % (37.0-47.0); LYMPH % 18.2 % (27.0-41.0); MEAN CELL VOLUME 98.5 fl (81.0-99.0); MONO # 0.6 10*3/uL (0.1-1.0); MONO % 11.6 % (3.0-9.0); NEUT # 3.6 10*3/uL (2.3-7.9); PLATELET COUNT AUTOMATED 268 10*3/uL (130-400); RED CELL DISTRI WIDTH 14.2 % (0-14.5); WHITE BLOOD COUNT 5.5 10*3/uL (4.8-10.8)
[2018-01-20 18:36] LABS: ALBUMIN 2.8 gm/dl (3.1-4.5); ALKALINE PHOSPHATASE 56 U/L (45-117); BUN 6 mg/dl (7-24); CHLORIDE 102 mmol/L (98-107); CREATININE 0.56 mg/dL (0.55-1.02); POTASSIUM 4.7 mmol/L (3.5-5.1); SGOT/AST 53 IU/L (3-35); SGPT/ALT 14 U/L (12-78); SODIUM 134 mmol/L (136-145); TOTAL PROTEIN 6.7 gm/dL (6.4-8.2)
[2018-01-20 18:38] LABS: TROPONIN I 0.265 ng/ml (<0.045)
[2018-01-21] VITALS: BP 93/61
[2018-01-21 04:00] VITALS: BP 125/51
[2018-01-21 06:20] LABS: BASO % 0.4 % (0.0-1.0); EOS # 0.3 10*3/uL (0.0-0.4); EOS % 4.5 % (1.0-4.0); HEMATOCRIT 30.2 % (37.0-47.0); HEMOGLOBIN 9.8 g/dl (12.0-16.0); LYMPH # 1.3 10*3/uL (1.3-4.4); LYMPH % 22.5 % (27.0-41.0); MEAN CELL VOLUME 96.8 fl (81.0-99.0); MEAN CORPUSCULAR HGB 31.4 pg (27.0-31.0); MEAN CORPUSCULAR HGB CONC 32.5 g/dl (33.0-37.0); MEAN PLATELET VOLUME 9.6 fl (9.6-12.3); MONO # 0.9 10*3/uL (0.1-1.0); MONO % 16.3 % (3.0-9.0); NEUT # 3.1 10*3/uL (2.3-7.9); NEUT % 55.9 % (47.0-73.0); PLATELET COUNT AUTOMATED 242 10*3/uL (130-400); RED BLOOD COUNT 3.12 10*6/uL (4.10-5.10); RED CELL DISTRI WIDTH 14.2 % (0-14.5); WHITE BLOOD COUNT 5.6 10*3/uL (4.8-10.8)
[2018-01-21 06:22] LABS: ALBUMIN 2.5 gm/dl (3.1-4.5); ALKALINE PHOSPHATASE 54 U/L (45-117); BUN 5 mg/dl (7-24); CHLORIDE 101 mmol/L (98-107); CREATININE 0.45 mg/dL (0.55-1.02); PHOSPHOROUS 1.7 mg/dL (2.5-4.9); SGOT/AST 21 IU/L (3-35); SGPT/ALT 14 U/L (12-78); TOTAL PROTEIN 5.7 gm/dL (6.4-8.2)
[2018-01-21 06:54] LABS: SODIUM 138 mmol/L (136-145)
[2018-01-21 07:05] LABS: POTASSIUM 3.4 mmol/L (3.5-5.1)
[2018-01-21 08:00] VITALS: BP 133/45
[2018-01-21 12:00] VITALS: BP 153/83
[2018-01-21 16:00] VITALS: BP 111/61
[2018-01-21 20:00] VITALS: BP 127/62
[2018-01-22] VITALS: BP 110/48
[2018-01-22 04:00] VITALS: BP 120/61
[2018-01-22 04:38] LABS: BASO % 0.5 % (0.0-1.0); EOS # 0.2 10*3/uL (0.0-0.4); EOS % 4.3 % (1.0-4.0); HEMATOCRIT 30.7 % (37.0-47.0); LYMPH # 1.4 10*3/uL (1.3-4.4); LYMPH % 24.1 % (27.0-41.0); MEAN CELL VOLUME 96.2 fl (81.0-99.0); MEAN CORPUSCULAR HGB 31.3 pg (27.0-31.0); MEAN CORPUSCULAR HGB CONC 32.6 g/dl (33.0-37.0); MEAN PLATELET VOLUME 9.5 fl (9.6-12.3); MONO # 0.8 10*3/uL (0.1-1.0); MONO % 14.5 % (3.0-9.0); NEUT # 3.2 10*3/uL (2.3-7.9); NEUT % 56.2 % (47.0-73.0); PLATELET COUNT AUTOMATED 252 10*3/uL (130-400); RED BLOOD COUNT 3.19 10*6/uL (4.10-5.10); RED CELL DISTRI WIDTH 14.2 % (0-14.5); WHITE BLOOD COUNT 5.6 10*3/uL (4.8-10.8)
[2018-01-22 04:55] LABS: ALBUMIN 2.4 gm/dl (3.1-4.5); ALKALINE PHOSPHATASE 47 U/L (45-117); BUN 5 mg/dl (7-24); CHLORIDE 99 mmol/L (98-107); PHOSPHOROUS 2.7 mg/dL (2.5-4.9); SGOT/AST 15 IU/L (3-35); SGPT/ALT 11 U/L (12-78); SODIUM 136 mmol/L (136-145); TOTAL PROTEIN 5.5 gm/dL (6.4-8.2)
[2018-01-22 08:00] VITALS: BP 142/75
[2018-01-22 12:00] VITALS: BP 103/35
[2018-01-22 16:00] VITALS: BP 118/51
[2018-01-22 20:00] VITALS: BP 123/51
[2018-01-23 00:25] VITALS: BP 127/66
[2018-01-23 06:10] LABS: BUN 4 mg/dl (7-24); CHLORIDE 98 mmol/L (98-107); CREATININE 0.55 mg/dL (0.55-1.02); POTASSIUM 3.7 mmol/L (3.5-5.1); SODIUM 137 mmol/L (136-145)
[2018-01-23 06:13] LABS: PHOSPHOROUS 3.1 mg/dL (2.5-4.9); VANCOMYCIN TROUGH 14.4 ug/mL (10-20)
[2018-01-23 06:18] LABS: BASO % 0.7 % (0.0-1.0); EOS # 0.4 10*3/uL (0.0-0.4); EOS % 6.9 % (1.0-4.0); LYMPH # 1.6 10*3/uL (1.3-4.4); LYMPH % 29.4 % (27.0-41.0); MEAN CELL VOLUME 97.1 fl (81.0-99.0); MEAN CORPUSCULAR HGB 31.4 pg (27.0-31.0); MEAN CORPUSCULAR HGB CONC 32.4 g/dl (33.0-37.0); MEAN PLATELET VOLUME 9.5 fl (9.6-12.3); MONO # 0.9 10*3/uL (0.1-1.0); MONO % 15.8 % (3.0-9.0); NEUT # 2.5 10*3/uL (2.3-7.9); PLATELET COUNT AUTOMATED 272 10*3/uL (130-400); RED CELL DISTRI WIDTH 14.3 % (0-14.5); WHITE BLOOD COUNT 5.4 10*3/uL (4.8-10.8)
[2018-01-23 08:00] VITALS: BP 157/77
[2018-01-23 12:00] VITALS: BP 137/92
[2018-01-23] MEDS ORDERED: IMDUR SA30 MG PO (15:13)
[2018-01-23] MEDS ORDERED: MUCINEX ER600 MG PO (15:13)
[2018-01-23] MEDS ORDERED: CARVEDILOL3.125 MG PO (15:13)
[2018-01-23] MEDS ORDERED: NYSTOP60 GM T (15:13)
[2018-01-23 16:00] VITALS: BP 130/77
== END 2018-01-23 18:41 | disposition other institution (70) | DRG 871 ==
LOC: ED 17:19 → ICCU 20:43 → EDHOLD 20:43 → 5E 21:29 → ICCU 01-18 00:53 → 4E 01-22 17:15
PROVIDERS: Internal Medicine; Internal Medicine Nephrology; Physician Assistant; Student in an Organized Health Care Education/Training Program
DX: A41.9 Sepsis, unspecified organism (principal); I21.4 Non-ST elevation (NSTEMI) myocardial infarction; I11.0 Hypertensive heart disease with heart failure; J18.1 Lobar pneumonia, unspecified organism; E44.0 Moderate protein-calorie malnutrition; I50.32 Chronic diastolic (congestive) heart failure; E11.65 Type 2 diabetes mellitus with hyperglycemia; F33.9 Major depressive disorder, recurrent, unspecified; D53.9 Nutritional anemia, unspecified; R65.20 Severe sepsis without septic shock; M19.90 Unspecified osteoarthritis, unspecified site; I25.10 Atherosclerotic heart disease of native coronary artery without angina pectoris; R74.8 Abnormal levels of other serum enzymes; E66.09 Other obesity due to excess calories; F41.9 Anxiety disorder, unspecified; G89.4 Chronic pain syndrome; E83.42 Hypomagnesemia; M81.8 Other osteoporosis without current pathological fracture; I08.0 Rheumatic disorders of both mitral and aortic valves; Z88.8 Allergy status to other drugs, medicaments and biological substances; Z79.899 Other long term (current) drug therapy; Z79.4 Long term (current) use of insulin; Z90.49 Acquired absence of other specified parts of digestive tract; Z98.61 Coronary angioplasty status; Z82.5 Family history of asthma and other chronic lower respiratory diseases; Z87.01 Personal history of pneumonia (recurrent); I25.2 Old myocardial infarction; Z88.0 Allergy status to penicillin; Z68.34 Body mass index [BMI] 34.0-34.9, adult

== ENCOUNTER 2018-01-30 06:56 | Inpatient (IN) | payer MEDICARE, MEDICAID ==
[2018-01-30] VITALS (18 sets, daily range): BP systolic 93–152; BP diastolic 39–100
[~2018-01-30] VITALS: Ht 167.6 cm; Wt 94.6 kg
--- NOTE | ~2018-01-30 | CON ---
[place], [place] REPORT OF CONSULTATION [id number] UNIT #: [id number] ROOM: [facility] DOCTOR: JOSE VILLATORO MD,LENIN BIRTHDATE: [birth year] DOS: 01/30/2018 PULMONARY CONSULTATION EVALUATION AND MANAGEMENT CONSULTATION REQUESTED BY: Dr. Mihai Luevano. REASON FOR CONSULTATION: To assess the patient's current acute respiratory failure requiring intubation and mechanical ventilation. History could not be obtained for the patient. All the history contained documented is actually with medical record of the patient of recent hospitalization in this hospital as well as the nursing notes. HISTORY OF PRESENT ILLNESS: An 82-year-old white female who has been admitted in this hospital and treated under care of hospitalist services from 01/17/2018 and discharged to the nursing facility on 01/22/2018. She was treated in the hospital with the diagnosis reported as an acute pneumonia described in the left lower lobe for this patient. The patient was given the antibiotics as broad spectrum intravenous antibiotics. She was also noted with mitral valve regurgitation, elevated troponin and several other symptoms. After the patient discharged and staying in the nursing facility, she has been brought back to the hospital. Per nurse's note for this patient, the patient has developed symptoms of progressive increased shortness of breath and the hypoglycemia episodes. She was noted gurgling in the throat. For the medical management of the hyperglycemia, she was given orange juice, most likely aspirated. She has been intubated and started on mechanical ventilation in the Emergency Room. Currently, the patient is sedated with intravenous Diprivan. Intermittent suctioning of the secretions with the patient containing orange juice, suctioned out by the respiratory therapy staff. She has been not noted with any symptoms of fever or chills previously prior to the hospitalization. The patient was given Lasix by the EMS as well because of the current respiratory distress. Further history for the patient by the current events were unknown and the patient noted intubated on the mechanical ventilation. REVIEW OF SYSTEMS: Could not be performed since the patient already intubated and noted on the mechanical ventilation. PAST MEDICAL HISTORY: Reported. 1. Coronary artery disease. 2. Type 2 diabetes mellitus. 3. Essential hypertension. 4. Anxiety and depression. 5. Deep osteoarthritis. 6. History of syncopal episode. 7. Past urinary tract infection. 8. Recent medical and acute left lower lobe pneumonia. 9. History of chronic pain. PAST SURGICAL HISTORY: 1. Cardiac catheterization, coronary artery stents insertion and angioplasty ____ allergy. [place], [place] REPORT OF CONSULTATION NAME: SARAH OLIVAS UNIT #: [id number] ROOM: [facility] DOCTOR: LENIN LAW MD BIRTHDATE: [birth year] 2. Cholecystectomy. 3. Left ankle trimalleolar fracture surgery. FAMILY HISTORY: Reported for bronchial asthma. SOCIAL HISTORY: The patient is noted a resident of a nursing facility at the present time. There were no past history of tobacco, alcohol or illicit drug use reported. FAMILY HISTORY: Father at 66 of unknown medical illnesses. Mother at 79 due to complications related to bronchial asthma and respiratory failure. MEDICATIONS: The current administered medication was noted as use of IV Protonix, Lovenox for DVT prophylaxis, Zithromax, meropenem, vancomycin and the propofol. DRUG ALLERGIES: Noted with allergy: 1. PENICILLIN. 2. PERCOCET. 3. CIPROFLOXACIN. 4. ROCEPHIN. PHYSICAL EXAMINATION: GENERAL: An 82-year-old white female who has been currently intubated on mechanical ventilation. Height recorded by nursing staff 5 feet 2 inches, weight of 28 pounds, BMI 33.6. VITAL SIGNS: Reported as temperature rectally 99% to give a normal temperature. Otherwise, respiratory 20-28, heart rate of 80-81, blood pressure 104/48-116/54. Pulse oxygen saturation on 50% oxygen mechanical ventilation, but noted 100% saturation. HEENT: The patient currently orally intubated, orogastric tube is in place. Head was atraumatic. Eyes nonicterus. NECK: Supple. CARDIOVASCULAR: S1, S2 is audible. LUNGS: Noted moderate expiratory wheezing in the lungs bilaterally with scattered crackles. ABDOMEN: Soft, nontender, bowel sounds present. EXTREMITIES: The patient was noted without any acute edema, clubbing or cyanosis. CENTRAL NERVOUS SYSTEM: Currently, the patient is sedated, but noted responsive as the patient brought to the hospital further examination could not be performed. SKIN: Visible skin with no lesions or rashes. MUSCULOSKELETAL: Noted without any acute deformities. LABORATORY DATA: The lactic acid 1.1 on admission. CBC of the patient on 01/30/2018, WBC count normal, hemoglobin and hematocrit normal, platelet count normal. Arterial blood gas pH of 7.3, pCO2 of 52, BUN 30. Post-intubation, mechanical ventilation 100% oxygen, assist control, volume control, and mechanical ventilation. PT/PTT were noted normal this morning. CMP this [place], [place] REPORT OF CONSULTATION NAME: SARAH OLIVAS UNIT #: [id number] ROOM: [facility] DOCTOR: JOSE VILLATORO MD,[facility] BIRTHDATE: [birth year] morning, glucose 131, BUN and creatinine was normal. Troponin 0.176. Arterial blood gas; pH of 7.30, pCO2 of 53, pO2 136, tidal volume of 500 mL, respiratory rate of 12 with a PEEP of 5.0 and 50% oxygen. The PT and PTT for the patient that was done on 01/30/[address] was [address] as [address] scan of the head, which was done for the patient in the Emergency Room was reported without any acute abnormalities. The chest x-ray of the patient that was done for the patient as the patient was brought to the hospital was noted prominence pulmonary venous congestion marking, possibility of small pleural fluids, bilaterally cannot be completely excluded. There was no gross areas of acute pulmonary infiltration visible except the retrocardiac density with possibly atelectasis, infiltration cannot be completely excluded and prominent right hilar area as well. The previous CT scan of the chest that was done for this patient on 01/18/2008 was reviewed at that time, noted with some scattered ground glass opacities in the lung, bilateral pleural effusions noted with area of compression atelectasis, possibility of infiltration or consolidation cannot be completely excluded. IMPRESSION: 1. The patient who has been currently admitted to the hospital was noted with an acute respiratory failure secondary to aspiration during this hospitalization. 2. Evidence of some pulmonary venous congestion. 3. Rule out pneumonia versus area of atelectasis, infiltration in the retrocardiac area of the left lower lobe. 4. Recent hospitalization. The patient is at high risk of developing a resistant infection from aspiration with possible initial colonization at this time would be considered. 5. Possibility of protein-calorie malnutrition. 6. History of congestive heart failure with cardiomyopathy and mitral valve regurgitation. 7. History of coronary artery disease. PLAN OF MANAGEMENT: Ordered the ____. All the ventilator bundle management initiated. The patient has been started on multiple broad spectrum intravenous antibiotic on this hospitalization, which may not be all needed. A respiratory culture will be ordered. Bronchoscopy will be planned to be done in the morning. Bronchodilator to be given to patient to help mobilize secretion, while on the mechanical ventilation. The feeding will be started for patient as well rather orogastric tube. Other supportive therapy, plan of management and care plan. Monitor chest x-ray as well. Supportive care. Other additional treatment changes to be made based on the progression of the illness. The arterial blood gases were noted with hypercapnia, which will be corrected gradually by self with current mechanical ventilatory support. Repeat another blood gas in about 3-4 hours and then make additional changes in the mechanical ventilation accordingly. Total time pulmonary critical management today's is 38 minutes. [place], [place] REPORT OF CONSULTATION NAME: SARAH OLIVAS UNIT #: [id number] ROOM: [facility] DOCTOR: LENIN LAW MD BIRTHDATE: [birth year] LENIN GARCIA MD CM:CONSTR:REPORT OF CONSULTATION 1330 02/07/18 1614 interface
--- NOTE | ~2018-01-30 | PR ---
[place], [place] PROGRESS NOTE NAME: SARAH OLIVAS UNIT #: [id number] ROOM: [facility] DOCTOR: JOSE VILLATORO MD,LENIN BIRTHDATE: [birth year] DOS: 02/01/2018 SUBJECTIVE: The patient has been noted without any acute distress at this time, sedated adequately. The patient has intermittent improvement noted with sedation vacation. She has not been noted with acute hemodynamic instability. The bronchoscopy was done, just a copious amount of mucopurulent material removed from the endobronchial tree. The feeding was continued for the patient from the orogastric tube which has been well tolerated. The oxygen supplementation decreased on the mechanical ventilator from 45% to 35% in the last 24 hours. OBJECTIVE: VITAL SIGNS: For the patient which were recorded showed the temperature noted as 99.8 degrees Fahrenheit to normal temperature, respiratory rate of 16-18, heart rate 84-96, blood pressure 128/56-130/61. Pulse oxygen saturation of the patient recorded on 35% as 97% saturation. HEENT: Examination shows head was atraumatic. Eyes nonicterus. NECK: Supple. CARDIOVASCULAR: S1, S2 was audible. LUNGS: The patient was noted without any wheezing or crackles at the present time. Breaths are noted generally diminished bilaterally. ABDOMEN: Soft, nontender. EXTREMITIES: The patient was noted without any acute edema. MUSCULOSKELETAL: Noted without any acute deformities. VISIBLE SKIN: No lesions or rashes. CENTRAL NERVOUS SYSTEM: The patient with improving mental status noted with sedation vacation. LABORATORY DATA: CBC of the patient that was done on 02/01/2018 noted a WBC count of 5.5, hemoglobin 9.1, hematocrit 28.1, platelet count of 173,000. CMP of the patient on 02/01/2018 noted with glucose of 474, BUN 18, creatinine 0.77, sodium 135. Albumin 2.1, total protein 5.3. The arterial blood gas this morning on assist control, volume control, pH is 7.42, pCO2 of 40, pO2 of 96.5 on 35% oxygen, PEEP of 5.0. IMAGING DATA: Chest x-ray of the patient that was done this morning was personally reviewed today and it shows bilateral pleural fluid with small infiltration noted in the lower portion of the lungs bilaterally. MICROBIOLOGY: Gram stain of the bronchial washing of the patient from yesterday noted as many white blood cells, rare gram-positive cocci in pairs and clusters. Preliminary cultures of the bronchial washing ____ noted normal sofia. Blood culture from 01/30/2018 shows no bacterial growth. Urine culture noted with heavy growth of gram-positive cocci as VRE, noted greater than 100,000 colony forming units. IMPRESSION: 1. The patient has been currently noted with acute severe hypoxic respiratory failure. 2. Acute bilateral lower lobe pneumonia from aspiration. [place], [place] PROGRESS NOTE NAME: SARAH OLIVAS UNIT #: [id number] ROOM: [facility] DOCTOR: JOSE VILLATORO MD,LENIN BIRTHDATE: [birth year] 3. Small pleural fluid, related to possibility of infection, fluid overload or congestive heart failure combination. 4. Protein-calorie malnutrition, which I noted is moderate to severe. 5. Severe hyperglycemia with uncontrolled diabetes mellitus. PLAN OF TREATMENT: Continue to maximize the management of hyperglycemia with adjustments in the medications. Continuation of antibiotics as previously. She was getting vancomycin and that could be discontinued, it is not needed based on the current culture results. Colonization of the urine may be considered for the patient at this time, needs to be monitored at the present time. If the treatment will be needed, she could get the Zyvox from the NG tube supplementation. Other supportive therapy, plan of management and care plan. Usual care, other supportive plan of therapy and management. Supportive treatment and other therapies. Total time spent in the pulmonary critical care evaluation and management noted was 34 minutes. LENIN GARCIA MD CM:PNTRANS [id number] LENNI VILLATORO MD 02/01/18 1536 interface
--- NOTE | ~2018-01-30 | PROC NOTE ---
[place], [place] PROCEDURE NOTE NAME: SARAH OLIVAS UNIT #: [id number] ROOM: [facility] DOCTOR: JOSE VILLATORO MD,LENIN BIRTHDATE: [birth year] DOS: 01/31/2018 BRONCHOSCOPY PROCEDURE NOTE PREOPERATIVE DIAGNOSES: The patient with current acute respiratory failure with aspiration. POSTOPERATIVE DIAGNOSES: The patient was noted with copious amount of purulent secretions present from the proximal portion of the trachea and present in all of the endobronchial tree bilaterally with impaction of the mucus was also noted in lower lungs bilaterally. Severe inflammatory changes of the airway was also noted with increased friability. PROCEDURE DESCRIPTION: Informed consent obtained from the patient's family members. The bronchoscopy done in negative pressure room in the ICU. The video fiberoptic bronchoscope advanced through the endotracheal tube into the lower part of the trachea, which was noted with copious amount of thick purulent secretions. It was suctioned out to the mary level. Severe inflammatory changes were noted in the airways and the tracheal lumen. Similar secretion present coating all of the endobronchial subsegments with impaction of the mucus plugs in the lower lungs in addition to that. The bronchial washing taken, sent for all the cultures. The procedure was well tolerated without difficulty. Postoperative findings will be discussed with the patient's family members later once available. LENIN GARCIA MD CM:PROCNOTE:PROCEDURE NOTE 1302 [id number] LENIN VILLATORO MD
--- NOTE | ~2018-01-30 | PR ---
[place], [place] PROGRESS NOTE [id number] UNIT #: [id number] ROOM: [facility] DOCTOR: JOSE VILLATORO MD,LENIN BIRTHDATE: [birth year] DOS: 02/02/2018 PULMONARY CRITICAL CARE EVALUATION AND MANAGEMENT SUBJECTIVE: The patient was seen and examined on 02/02/2018, remains on mechanical ventilator, failed assessment from liberation of mechanical ventilation testing yesterday. The patient noted to have tachypnea, tachycardia and significant distress about 10 minutes after the patient started on CPAP. She was switched back to assist control mode of mechanical ventilation and sedation was resumed. She has not been noted any hemodynamic instability at this time. Has not been noted any ongoing other new complaints at this time, temperature is still noted low grade for the patient 100.2 degrees Fahrenheit. Bronchoscopy was completed yesterday with evidence of acute pneumonia was also noted. The patient has been assessed again for the patient with discontinue sedation and a trial of the liberation from mechanical ventilator assessment that failed for the patient completely. She was noted with severe tachypnea with the belly breathing for the patient and increased tachycardia as well. She was switched back again to the assist control mode of mechanical ventilation. OBJECTIVE: VITAL SIGNS: The patient showed the temperature of 100.2 degrees Fahrenheit, respiratory rate of 18-19, heart rate of 86-89, blood pressure 124/50-110/50. Intake for the patient is 3056, output 1825 mL. Pulse oxygen saturation 35% oxygen 96% saturation. HEENT: The patient is orally intubated. Endotracheal tube is in place. NECK: Supple. CARDIOVASCULAR: S1, S2 is audible. LUNGS: Moderate decreased breath sounds without any wheezing. There were no crackles heard. ABDOMEN: Soft with chronic moderate obesity. Bowel sounds present without any tenderness. EXTREMITIES: Noted without any acute edema. MUSCULOSKELETAL: The patient without any deformities. SKIN: Visible skin, no lesions or rashes. CENTRAL NERVOUS SYSTEM: With reduced sedation for this patient. The patient noted awake, but does not follow vocal commands. LABORATORY DATA: Chest x-ray which was done this morning shows evidence of basilar area of infiltration with associated small pleural effusions. Arterial blood gas today 35% oxygen, pH of 7.45, pCO2 of 40, pO2 128. CMP of the patient this morning, glucose 390, BUN 16, creatinine was normal. Phosphorus 0.6, calcium 7.5, albumin 1.9, total protein of 5.3. Culture of the bronchial washing was noted with evidence of MRSA, light growth. Endotracheal aspirate culture was noted heavy growth as well. INR noted 1.0. CBC today in the labs, the patient's hemoglobin 9.2, hematocrit 28.6, WBC count normal, platelet count was normal. IMPRESSION: 1. The patient with an acute persistent severe respiratory failure secondary to [place], [place] PROGRESS NOTE NAME: SARAH OLIVAS UNIT #: [id number] ROOM: [facility] DOCTOR: JOSE VILLATORO MD,LENIN BIRTHDATE: [birth year] acute MRSA pneumonia bilaterally with aspiration as well. 2. Pleural fluid of the patient noted small, related to the current acute pneumonia very likely. 3. Severe protein-calorie malnutrition. 4. Chronic obesity, which is noted moderate. 5. Anemia, most likely chronic disease without any acute blood loss seen. 6. Overall severe debility. 7. Failed trial of liberation of mechanical ventilation at this time. However, the oxygenation is gradually improving. 8. Overall muscular debility of the patient secondary to current acute illness. 9. Resolution of the hypoglycemia. 10. Type 2 diabetes mellitus. The patient still noted with uncontrolled hyperglycemia, blood glucose 300-400 range. PLAN OF MANAGEMENT: Antibiotic for the patient will be directed according to the culture results. The patient should be assessed for long-term acute care facility placement for further continued long-term management from the mechanical ventilator and the weaning from the mechanical ventilator needs to be done slowly. Continuation of the nutrition support. Bronchodilators. Usual care. DVT prophylaxis. Ventilator bundle management. Continue DVT prophylaxis. Usual care, other supportive plan of management, other care and treatment and therapies. Additional treatment changes will be made based on progression of the illness. Continue to maximize the medical management of diabetes mellitus. Supportive care, other therapy, plan of management. Additional treatment changes will be made for the patient based on progression of the illness. The patient receiving the Zyvox because of the VRE isolation of the urine and also noted with allergy to the PENICILLINS. Meropenem I need to be discontinued for the patient once all the cultures finalized. Total time for the patient in pulmonary critical care evaluation and management was 35 minutes. LENIN GARCIA MD CM:PNTRANS [id number] LENIN VILLATORO MD 02/03/18 0541 interface
--- NOTE | ~2018-01-30 | PR ---
[place], [place] PROGRESS NOTE [id number] UNIT #: [id number] ROOM: [facility] DOCTOR: JOSE VILLATORO MD,LENIN BIRTHDATE: [birth year] DOS: 01/31/2018 SUBJECTIVE: The patient has been looking comfortably resting on the mechanical ventilator. The patient was on 45% oxygen supplementation at the present time. She remains on assist-control mechanical ventilation. The ventilation of the patient has improved, which was rechecked with the arterial blood gases yesterday twice. She has been noted without any hemodynamic instability, which is acute at the present time. She has been noted without any symptoms of increased residual with the current feeding, which was started yesterday. The feeding was started with Pulmocare, seemed to be well tolerated. Small amount of secretion, suctioned, has been noted in the last 24 hours after the hospitalization. The cultures have been sent on the endotracheal aspirate. OBJECTIVE: VITAL SIGNS: Temperature noted 102.9 degree Fahrenheit rectal temperature, later noted low-grade fever to 100.1 degree Fahrenheit, respiratory rate ranging between 16-19, heart rate 80-75, blood pressure 100/45-111/51. Pulse oxygen saturation of the patient noted as 96% saturation on 40% oxygen this morning and the oxygen saturation decreased from 45 to 40%. HEENT: Examination shows head was atraumatic. Eyes nonicterus. The patient remains orally intubated. NECK: Supple. CARDIOVASCULAR: S1, S2 audible. LUNGS: Noted with moderately decreased breath sounds in the lungs were noted bilaterally. The wheezing, which was present yesterday, seemed to be resolved. ABDOMEN: Soft without any tenderness. EXTREMITIES: Noted without any edema, clubbing, or cyanosis. MUSCULOSKELETAL: Noted without any obvious deformities. GENITOURINARY: The patient is currently sedated with intravenous Diprivan. LABORATORY DATA: Arterial blood gas that was done yesterday on 01/30/2018, pH of 7.41, pCO2 of 41, pO2 of 96 with 50% oxygen. Arterial blood gas that was done this morning on 40% oxygen, pH of 7.40, pCO2 of 39, pO2 of 108. Endotracheal aspirate Gram stain, many white blood cells with few epithelial cells, few gram-positive cocci in pairs and few budding yeast. CMP from this morning, glucose 347, BUN 16, creatinine was normal. Potassium was 3.2. Total protein 5.2, albumin 2.2. Prealbumin only 10. CBC this morning, hemoglobin 9.5, hematocrit 28.9, and platelet count of 196,000. PT/PTT of the patient this morning, INR was 1.2, PTT of 32. The troponin, which was done last evening was noted 0.176, elevation. IMAGING STUDIES: CT scan of the chest that was done on the patient yesterday was personally reviewed and shows area of infiltration noted in the lower lungs with associated atelectasis. Chest x-ray of the patient that was done this morning shows infiltration, consolidation noted increased in the right lower lobe with additional area of atelectasis, infiltration with some pleural fluid in the left side would be considered. The endotracheal tube noted in appropriate position. NG tube noted in the stomach. IMPRESSION: [place], [place] PROGRESS NOTE NAME: SARAH OLIVAS UNIT #: [id number] ROOM: [facility] DOCTOR: KRIS LAW MDM BIRTHDATE: [birth year] 1. The patient who has been currently noted with acute pneumonia with aspiration as well, superimposed component. 2. Atelectasis secondary to endobronchial secretions, impaction would be considered. 3. The patient with acute sepsis related to current acute pneumonia with hypoglycemia. 4. The patient is currently noted with hyperglycemia at the present time with the current morning labs. There were no further episodes of hypoglycemia. The infection of the patient to be treated for the gram-positive, gram-negative at the present time, which will be monitored. The urine culture was also noted gram-positive cocci, heavy growth, pending identification and sensitivity, possibility of VRE infection or Staph cannot be excluded. 5. Very severe protein-calorie malnutrition. PLAN OF MANAGEMENT: The patient was planned for bronchoscopy that will be done today. Any modification in the treatment will be done after the bronchoscopy. Continue current antibiotics. Continue nutrition support and ventilator bundle management. Monitor hemodynamics closely. Management of the hyperglycemia for this patient as well. The patient was also noted with anemia. Discontinue intravenous fluid, D5W at this time because of current hyperglycemia. Avoid any fluid overload. Other additional treatment changes to be made for this patient based on the progression of the illness. Usual care, other supportive therapy, plan of management. Total time spent in the Pulmonary critical care, evaluation, and management of the patient for today's assessment was 35 minutes LENIN GARCIA MD CM:PNTRANS [id number] LENIN VILLATORO MD 01/31/18 2344 interface
--- NOTE | ~2018-01-30 | PR ---
[place], [place] PROGRESS NOTE NAME: SARAH OLIVAS UNIT #: [id number] ROOM: [facility] DOCTOR: ALFIE ALLEN MD BIRTHDATE: [birth year] DOS: 02/01/2018 She remains intubated and is on the ventilator. She is not tachypneic. Temperature is normal. NECK: JVP is normal. CARDIOVASCULAR: Cardiac auscultation reveals no obvious murmurs. Heart rate is irregular. LUNGS: Lot of crackles in both lungs with reduced breath sounds, more so on the left side and trace pedal edema. LABORATORY DATA: Monitor shows AFib with a rate that is in the 90s. Chest x-ray done the day before had demonstrated pleural effusion and no obvious pulmonary edema. IMPRESSION: 1. The patient has atrial fibrillation with reasonable rate with interventricular conduction defect. 2. No radiographic evidence of heart failure. 3. Respiratory failure, probably from pneumonia. No new recommendations ALFIE ALLEN MD CM:PNTRANS [id number] [id number] ALFIE ALLEN MD 02/02/18 1033 interface
--- NOTE | ~2018-01-30 | PR ---
[place], [place] PROGRESS NOTE NAME: SARAH OLIVAS [facility] #: [id number] UNIT #: [id number] ROOM: [facility] DOCTOR: ALFIE ALLEN MD BIRTHDATE: [birth year] DOS: 01/31/2018 SUBJECTIVE: This patient was discharged from this hospital last week following management of her respiratory failure, diastolic heart failure and possible NSTEMI. She was readmitted because of possible aspiration and apparently had become very short of breath and because of respiratory failure, she was intubated and is sedated. Monitor shows sinus tachycardia with PVCs. OBJECTIVE: NECK: JVP appears to be normal. CARDIOVASCULAR: She has a grade 3/6 murmur with aortic stenosis and very little edema in the pedal area. LUNGS: Breath sounds are diminished bilaterally. Chest x-ray today demonstrates no obvious pulmonary edema. There is a small right pleural effusion with some basal atelectasis/infiltrates. IMPRESSION: 1. Coronary artery disease. This is probably not a problem at this time. 2. Moderate to severe aortic regurgitation and moderate to severe aortic stenosis. This could eventually cause heart failure. 3. Probable pneumonia and she is getting a bronchoscope done today. No new recommendations. ALFIE ALLEN MD CM:PNTRANS [id number] [id number] ALFIE ALLEN MD 01/31/18 1048 interface
--- NOTE | ~2018-01-30 | CON ---
[place], [place] REPORT OF CONSULTATION NAME: SARAH OLIVAS [facility] #: [id number] UNIT #: [id number] ROOM: [facility] DOCTOR: KEVIN KIRKPATRICKLESLIE BIRTHDATE: [birth year] DOS: 01/30/2018 HISTORY OF PRESENT ILLNESS: I examined the patient in the Emergency Room. I was consulted because the patient has a left bundle-branch block and the patient came in diaphoretic and in respiratory distress and got intubated, but the patient had an old left bundle branch block. I had done a stent placement of the obtuse marginal branch in 2012 and have not seen her since. The patient's most of the information is obtained from the physician. No family available here. The patient is intubated and sedated. The patient is getting a CT scan ____. PAST MEDICAL HISTORY: Significant for known coronary artery disease, previous stent placement in 2012, coronary artery disease, chronic bundle branch block, hypertension, hyperlipidemia and diabetes mellitus. MEDICATIONS: She was on the following medications: clopidogrel, insulin, potassium, losartan, calcium, acetaminophen, simvastatin, and cholecalciferol. ALLERGIES: Unknown. PAST MEDICAL HISTORY: As mentioned. MEDICATIONS: As mentioned. REVIEW OF SYSTEMS: Not possible as the patient is critical intubated. PHYSICAL EXAMINATION: GENERAL: The patient is sedated, intubated. VITAL SIGNS: Blood pressure is 110/70, sinus tachycardia, rate of 110. NECK: Supple, elevated JVD. LUNGS: Diminished air entry. HEART: Sounds are regular with an S3 and an S4. ABDOMEN: Soft, nontender. EXTREMITIES: No edema. LABORATORY DATA: Shows hemoglobin 12.7, hematocrit 38.6, platelet count is normal. INR is 1.1, pH is 7.3, pCO2 of 52, pO2 of 230. Sodium 137, potassium 4.9. BUN and creatinine is normal. Troponin is 0.17. BNP is pending. Albumin is normal. GFR is normal. Chest x-ray shows left lower lobe infiltrate and small left pleural effusion. IMPRESSION: The patient with acute respiratory failure, chronic left bundle branch block, probable heart failure, hypertension, left lower lobe infiltrate, acute respiratory failure, status post intubation, diabetes mellitus, hypertension, and hyperlipidemia. RECOMMENDATIONS: Continue the present care. Await CT scan results. Continue serial enzymes. Get a stat echocardiogram. Strict I's and O's. IV antibiotics as ordered. IV diuretics as ordered. Small dose of beta blockers. Condition is guarded and critical and will follow up. [place], [place] REPORT OF CONSULTATION NAME: SARAH OLIVAS UNIT #: [id number] ROOM: [facility] DOCTOR: LESLIE BROWN MD BIRTHDATE: [birth year] LESLIE BROWN MD CM:CONSTR:REPORT OF CONSULTATION 0807 01/31/18 0048 interface
--- NOTE | ~2018-01-30 | PR ---
[place], [place] PROGRESS NOTE NAME: SARAH OLIVAS UNIT #: [id number] ROOM: [facility] DOCTOR: ALFIE ALLEN MD BIRTHDATE: [birth year] DOS: 02/02/2018 The patient remains intubated and sedated. She is not tachypneic. Temperature is normal. EXTREMMITIES: There is trace edema in lower extremities. LUNGS: Lot of crackles in both lungs. Murmur of aortic stenosis is present. Monitor shows atrial fibrillation with frequent ventricular ectopy now. IMPRESSION: 1. The patient has pneumonia and respiratory failure. 2. She has significant aortic stenosis by an echocardiogram. 3. Atrial fibrillation with rate that is fairly decent. 4. Ventricular ectopy is also noted. No new recommendations. ALFIE ALLEN MD CM:PNTRANS 0803 1037 ALFIE ALLEN MD 02/02/18 1036 interface
[~2018-01-30 06:56] MED LIST changes: +CARVEDILOL3.125 MG PO; -CYMBALTA30 MG PO; +CYMBALTA60 MG PO; +IMDUR SA30 MG PO; +MUCINEX ER600 MG PO; +ZANAFLEX4 M2 PO
[2018-01-30 07:40] LABS: BASO # 0.1 10*3/uL (0.0-0.1); BASO % 0.7 % (0.0-1.0); EOS # 0.3 10*3/uL (0.0-0.4); EOS % 3.7 % (1.0-4.0); HEMATOCRIT 38.6 % (37.0-47.0); HEMOGLOBIN 12.7 g/dl (12.0-16.0); LYMPH # 0.9 10*3/uL (1.3-4.4); LYMPH % 12.7 % (27.0-41.0); MEAN CELL VOLUME 95.8 fl (81.0-99.0); MEAN CORPUSCULAR HGB 31.5 pg (27.0-31.0); MEAN CORPUSCULAR HGB CONC 32.9 g/dl (33.0-37.0); MEAN PLATELET VOLUME 9.3 fl (9.6-12.3); MONO # 0.8 10*3/uL (0.1-1.0); MONO % 10.6 % (3.0-9.0); NEUT # 5.2 10*3/uL (2.3-7.9); NEUT % 71.9 % (47.0-73.0); PLATELET COUNT AUTOMATED 322 10*3/uL (130-400); RED BLOOD COUNT 4.03 10*6/uL (4.10-5.10); RED CELL DISTRI WIDTH 13.7 % (0-14.5); WHITE BLOOD COUNT 7.3 10*3/uL (4.8-10.8)
[2018-01-30 07:43] LABS: BILIRUBIN NEGATIVE (NEGATIVE); BLOOD 3+ (NEGATIVE); CLARITY CLOUDY (CLEAR); COLOR YELLOW (YELLOW); GLUCOSE NEGATIVE (NEGATIVE); KETONE NEGATIVE (NEGATIVE); LEUKO ESTERASE 3+ (NEGATIVE); NITRITE NEGATIVE (NEGATIVE); UROBILINOGEN 0.2 E.U./dl (0.2-1.0)
[2018-01-30 07:45] LABS: ABG BASE EXCESS -0.7 mmol/L (-2.0-2.0); ABG O2 SATURATION 99.5 % (95-97); ARTERIAL BLOOD GAS PCO2 52.7 mmHg (35-45); ARTERIAL BLOOD GAS PH 7.309 (7.35-7.45)
[2018-01-30 07:45] LABS: ACT PARTIAL THROMBO TIME 27.1 SECONDS (20.8-31.5); INTERNATIONAL NORM RATIO 1.1 (2.0-3.5)
[2018-01-30 07:53] LABS: ALBUMIN 3.2 gm/dl (3.1-4.5); ALKALINE PHOSPHATASE 70 U/L (45-117); BUN 11 mg/dl (7-24); CHLORIDE 102 mmol/L (98-107); CREATININE 0.83 mg/dL (0.55-1.02); POTASSIUM 4.9 mmol/L (3.5-5.1); SGOT/AST 28 IU/L (3-35); SGPT/ALT 18 U/L (12-78); SODIUM 137 mmol/L (136-145); TOTAL PROTEIN 7.5 gm/dL (6.4-8.2)
[2018-01-30 07:59] LABS: WBC TNTC wbc/hpf (0-5)
[2018-01-30 08:00] LABS: TROPONIN I 0.176 ng/ml (<0.045)
[2018-01-30] MEDS ORDERED: HUMALOG100 UNIT/2 SQ (08:47)
[2018-01-30 10:13] LABS: ABG BASE EXCESS -0.7 mmol/L (-2.0-2.0); ABG HCO3 25.5 mmol/l (22-26); ABG O2 SATURATION 98.5 % (95-97); ARTERIAL BLOOD GAS PCO2 53.1 mmHg (35-45); ARTERIAL BLOOD GAS PH 7.306 (7.35-7.45)
[2018-01-30] MEDS ORDERED: CALCIUM 500 +1 EAC1 PO (11:25)
[2018-01-30 13:37] LABS: TROPONIN I 0.183 ng/ml (<0.045)
[2018-01-30 16:20] LABS: ABG BASE EXCESS 1.8 mmol/L (-2.0-2.0); ABG O2 SATURATION 96.9 % (95-97); ARTERIAL BLOOD GAS PH 7.417 (7.35-7.45); ARTERIAL BLOOD GAS PO2 96.8 mmHg (80-90)
[2018-01-31] VITALS (12 sets, daily range): BP systolic 99–143; BP diastolic 37–70
[2018-01-31 05:26] LABS: ALBUMIN 2.2 gm/dl (3.1-4.5); ALKALINE PHOSPHATASE 54 U/L (45-117); BUN 16 mg/dl (7-24); CHLORIDE 102 mmol/L (98-107); CHOLESTEROL 114 mg/dL (<200); CREATININE 0.86 mg/dL (0.55-1.02); HDL CHOLESTEROL 44 mg/dl (40-60); LDL CHOLESTEROL 51 mg/dL (9-159); PHOSPHOROUS 2.2 mg/dL (2.5-4.9); SGOT/AST 24 IU/L (3-35); SGPT/ALT 14 U/L (12-78); SODIUM 136 mmol/L (136-145); TOTAL PROTEIN 5.2 gm/dL (6.4-8.2); TRIGLYCERIDES 96 mg/dl (<150); VLDL CHOLESTEROL 19 mg/dL (6-40)
[2018-01-31 05:30] LABS: POTASSIUM 3.2 mmol/L (3.5-5.1)
[2018-01-31 05:45] LABS: ACT PARTIAL THROMBO TIME 32.7 SECONDS (20.8-31.5); INTERNATIONAL NORM RATIO 1.2 (2.0-3.5)
[2018-01-31 05:57] LABS: BASO % 0.2 % (0.0-1.0); EOS # 0.1 10*3/uL (0.0-0.4); EOS % 0.6 % (1.0-4.0); LYMPH # 0.9 10*3/uL (1.3-4.4); LYMPH % 10.6 % (27.0-41.0); MEAN CELL VOLUME 94.8 fl (81.0-99.0); MEAN CORPUSCULAR HGB 31.1 pg (27.0-31.0); MEAN CORPUSCULAR HGB CONC 32.9 g/dl (33.0-37.0); MEAN PLATELET VOLUME 9.9 fl (9.6-12.3); MONO # 0.7 10*3/uL (0.1-1.0); MONO % 8.5 % (3.0-9.0); NEUT # 6.8 10*3/uL (2.3-7.9); NEUT % 79.7 % (47.0-73.0); RED BLOOD COUNT 3.05 10*6/uL (4.10-5.10); RED CELL DISTRI WIDTH 14.2 % (0-14.5); WHITE BLOOD COUNT 8.5 10*3/uL (4.8-10.8)
[2018-01-31 06:00] LABS: HEMATOCRIT 28.9 % (37.0-47.0); HEMOGLOBIN 9.5 g/dl (12.0-16.0); PLATELET COUNT AUTOMATED 196 10*3/uL (130-400)
[2018-01-31 06:14] LABS: PREALBUMIN 10 mg/dl (20-40)
[2018-01-31 07:13] LABS: ABG BASE EXCESS 0.3 mmol/L (-2.0-2.0); ABG HCO3 24.4 mmol/l (22-26); ABG O2 SATURATION 98.1 % (95-97); ARTERIAL BLOOD GAS PCO2 39.8 mmHg (35-45); ARTERIAL BLOOD GAS PH 7.405 (7.35-7.45)
[2018-01-31 07:46] LABS: VITAMIN D, 25-HYDROXY 23.9 ng/mL (30-100)
[2018-01-31 17:10] LABS: GONOCOCCUS BY NAA Negative (Negative)
[2018-02-01] VITALS (12 sets, daily range): BP systolic 111–148; BP diastolic 51–73
[2018-02-01 05:58] LABS: ALBUMIN 2.1 gm/dl (3.1-4.5); ALKALINE PHOSPHATASE 55 U/L (45-117); BUN 18 mg/dl (7-24); CHLORIDE 102 mmol/L (98-107); CREATININE 0.77 mg/dL (0.55-1.02); POTASSIUM 3.8 mmol/L (3.5-5.1); SGOT/AST 31 IU/L (3-35); SGPT/ALT 16 U/L (12-78); SODIUM 135 mmol/L (136-145); TOTAL PROTEIN 5.3 gm/dL (6.4-8.2)
[2018-02-01 06:13] LABS: BASO % 0.4 % (0.0-1.0); EOS # 0.3 10*3/uL (0.0-0.4); EOS % 4.5 % (1.0-4.0); HEMATOCRIT 28.1 % (37.0-47.0); HEMOGLOBIN 9.1 g/dl (12.0-16.0); LYMPH # 0.7 10*3/uL (1.3-4.4); LYMPH % 12.7 % (27.0-41.0); MEAN CELL VOLUME 95.3 fl (81.0-99.0); MEAN CORPUSCULAR HGB 30.8 pg (27.0-31.0); MEAN CORPUSCULAR HGB CONC 32.4 g/dl (33.0-37.0); MEAN PLATELET VOLUME 10.2 fl (9.6-12.3); MONO # 0.6 10*3/uL (0.1-1.0); MONO % 11.6 % (3.0-9.0); NEUT # 3.9 10*3/uL (2.3-7.9); NEUT % 70.3 % (47.0-73.0); PLATELET COUNT AUTOMATED 173 10*3/uL (130-400); RED BLOOD COUNT 2.95 10*6/uL (4.10-5.10); RED CELL DISTRI WIDTH 14.2 % (0-14.5); WHITE BLOOD COUNT 5.5 10*3/uL (4.8-10.8)
[2018-02-01 07:16] LABS: ABG BASE EXCESS 1.9 mmol/L (-2.0-2.0); ABG HCO3 25.7 mmol/l (22-26); ABG O2 SATURATION 97.7 % (95-97); ARTERIAL BLOOD GAS PH 7.427 (7.35-7.45); ARTERIAL BLOOD GAS PO2 96.5 mmHg (80-90)
[2018-02-01 15:08] LABS: ACID FAST SPEC PROCESSING Concentration (.)
[2018-02-02] VITALS (10 sets, daily range): BP systolic 104–147; BP diastolic 45–81
[2018-02-02 06:16] LABS: BASO % 0.2 % (0.0-1.0); EOS # 0.4 10*3/uL (0.0-0.4); EOS % 7.9 % (1.0-4.0); HEMATOCRIT 28.6 % (37.0-47.0); HEMOGLOBIN 9.2 g/dl (12.0-16.0); LYMPH # 0.8 10*3/uL (1.3-4.4); LYMPH % 14.5 % (27.0-41.0); MEAN CELL VOLUME 96.9 fl (81.0-99.0); MEAN CORPUSCULAR HGB 31.2 pg (27.0-31.0); MEAN CORPUSCULAR HGB CONC 32.2 g/dl (33.0-37.0); MEAN PLATELET VOLUME 9.9 fl (9.6-12.3); MONO # 0.6 10*3/uL (0.1-1.0); MONO % 11.9 % (3.0-9.0); NEUT # 3.4 10*3/uL (2.3-7.9); NEUT % 65.1 % (47.0-73.0); PLATELET COUNT AUTOMATED 178 10*3/uL (130-400); RED BLOOD COUNT 2.95 10*6/uL (4.10-5.10); RED CELL DISTRI WIDTH 14.1 % (0-14.5); WHITE BLOOD COUNT 5.2 10*3/uL (4.8-10.8)
[2018-02-02 06:42] LABS: ALBUMIN 1.9 gm/dl (3.1-4.5); BUN 16 mg/dl (7-24); CHLORIDE 104 mmol/L (98-107); CREATININE 0.61 mg/dL (0.55-1.02); POTASSIUM 3.8 mmol/L (3.5-5.1); SGOT/AST 29 IU/L (3-35); SGPT/ALT 17 U/L (12-78); SODIUM 139 mmol/L (136-145)
[2018-02-02 06:48] LABS: ALKALINE PHOSPHATASE 55 U/L (45-117); TOTAL PROTEIN 5.3 gm/dL (6.4-8.2)
[2018-02-02 07:09] LABS: PHOSPHOROUS 0.6 mg/dL (2.5-4.9)
[2018-02-02 08:27] LABS: ABG BASE EXCESS 4.1 mmol/L (-2.0-2.0); ABG HCO3 27.7 mmol/l (22-26); ABG O2 SATURATION 99.2 % (95-97); ARTERIAL BLOOD GAS PCO2 40.3 mmHg (35-45); ARTERIAL BLOOD GAS PH 7.454 (7.35-7.45)
[2018-02-02] MEDS ORDERED: ZYVOX600 MG/300 IV (14:35)
[2018-02-02] MEDS ORDERED: MERREM IV1 GM IV (14:35)
[2018-02-02] MEDS ORDERED: Humalog SQ (14:35)
[2018-02-02] MEDS ORDERED: K-PHOS500 MG PO (14:35)
== END 2018-02-02 18:43 | DRG 871 ==
LOC: ED 06:56 → EDHOLD 08:23 → ICCU 08:23
PROVIDERS: Emergency Medicine; Internal Medicine; Internal Medicine Critical Care Medicine; Student in an Organized Health Care Education/Training Program
PROC: 0BH17EZ Insertion of Endotracheal Airway into Trachea, Via Natural or Artificial Opening (ICD-10-PCS; principal; 2018-01-30)
PROC: 5A1945Z Respiratory Ventilation, 24-96 Consecutive Hours (ICD-10-PCS; principal; 2018-01-30)
PROC: 5A09357 Assistance with Respiratory Ventilation, Less than 24 Consecutive Hours, Continuous Positive Airway Pressure (ICD-10-PCS; principal; 2018-01-30)
PROC: 0BDJ8ZX Extraction of Left Lower Lung Lobe, Via Natural or Artificial Opening Endoscopic, Diagnostic (ICD-10-PCS; 2018-01-31)
PROC: 0BDF8ZX Extraction of Right Lower Lung Lobe, Via Natural or Artificial Opening Endoscopic, Diagnostic (ICD-10-PCS; 2018-01-31)
PROC: 0BC28ZZ Extirpation of Matter from Carina, Via Natural or Artificial Opening Endoscopic (ICD-10-PCS; 2018-01-31)
PROC: 0BC18ZZ Extirpation of Matter from Trachea, Via Natural or Artificial Opening Endoscopic (ICD-10-PCS; 2018-01-31)
DX: A41.9 Sepsis, unspecified organism (principal); J96.01 Acute respiratory failure with hypoxia; J69.0 Pneumonitis due to inhalation of food and vomit; E43 Unspecified severe protein-calorie malnutrition; G93.41 Metabolic encephalopathy; J94.8 Other specified pleural conditions; J96.02 Acute respiratory failure with hypercapnia; E87.2 Acidosis; T17.890A Other foreign object in other parts of respiratory tract causing asphyxiation, initial encounter; N39.0 Urinary tract infection, site not specified; I50.42 Chronic combined systolic (congestive) and diastolic (congestive) heart failure; J98.11 Atelectasis; I42.9 Cardiomyopathy, unspecified; R65.20 Severe sepsis without septic shock; N93.9 Abnormal uterine and vaginal bleeding, unspecified; E83.39 Other disorders of phosphorus metabolism; F41.9 Anxiety disorder, unspecified; F32.9 Major depressive disorder, single episode, unspecified; M19.90 Unspecified osteoarthritis, unspecified site; I10 Essential (primary) hypertension; I25.10 Atherosclerotic heart disease of native coronary artery without angina pectoris; D64.9 Anemia, unspecified; E78.5 Hyperlipidemia, unspecified; R74.8 Abnormal levels of other serum enzymes; E11.65 Type 2 diabetes mellitus with hyperglycemia; I11.0 Hypertensive heart disease with heart failure; I08.0 Rheumatic disorders of both mitral and aortic valves; E66.09 Other obesity due to excess calories; I44.7 Left bundle-branch block, unspecified; J40 Bronchitis, not specified as acute or chronic; I48.91 Unspecified atrial fibrillation; I49.3 Ventricular premature depolarization; E11.649 Type 2 diabetes mellitus with hypoglycemia without coma; G89.4 Chronic pain syndrome; X58.XXXA Exposure to other specified factors, initial encounter; Y93.89 Activity, other specified; Y92.89 Other specified places as the place of occurrence of the external cause; Y99.8 Other external cause status; Z79.4 Long term (current) use of insulin; Z22.39 Carrier of other specified bacterial diseases; Z68.33 Body mass index [BMI] 33.0-33.9, adult; Z88.1 Allergy status to other antibiotic agents; Z88.6 Allergy status to analgesic agent; Z88.0 Allergy status to penicillin; Z87.01 Personal history of pneumonia (recurrent); I25.2 Old myocardial infarction; Z90.49 Acquired absence of other specified parts of digestive tract; Z95.5 Presence of coronary angioplasty implant and graft; Z82.5 Family history of asthma and other chronic lower respiratory diseases; Z79.899 Other long term (current) drug therapy; Z79.02 Long term (current) use of antithrombotics/antiplatelets; Z87.440 Personal history of urinary (tract) infections

== ENCOUNTER 2018-03-10 13:57 | Inpatient (IN) | payer MEDICARE ==
[2018-03-10] VITALS (8 sets, daily range): BP systolic 91–156; BP diastolic 55–86
[~2018-03-10] VITALS: Ht 167.6 cm; Wt 90.4 kg
--- NOTE | ~2018-03-10 | EKG ---
[place], [place] ELECTROCARDIOGRAM REPORT NAME: SARAH OLIVAS UNIT #: [id number] ROOM: [facility] DOCTOR: TIFFANY KIRKPATRICK,ALFIE BIRTHDATE: [birth year] DOS: 03/11/2018 TIME: 1705 hours. FINDINGS: 1. Atrial fibrillation with a ventricular rate 117 beats per minute. 2. Complete left bundle-branch block with marked left axis deviation. 3. No prior tracing is available for comparison. ALFIE ALLEN MD CM:EKGRPT:ELECTROCARDIOGRAM REPORT 1113 [id number] ALFIE ALLEN MD
--- NOTE | ~2018-03-10 | PR ---
[place], [place] PROGRESS NOTE NAME: SARAH OLIVAS UNIT #: [id number] ROOM: [facility] DOCTOR: LESLIE BROWN MD BIRTHDATE: [birth year] DOS: 03/13/2018 SUBJECTIVE: I know this patient very well from before to care of her. Also, she was in [facility] and she was here and had a catheter in the past also. The patient had ventricular tachycardia. The patient had defibrillation done. The patient is awake, but confused, does not answer any questions, and appears to be comfortable, not in any acute distress. Dr. Shook saw the patient over the weekend. Denies any chest discomfort. She is comfortable and as mentioned, not in any acute distress. She is in sinus rhythm. OBJECTIVE: VITAL SIGNS: Blood pressure is 130/70. NECK: Supple, elevated JVD. LUNGS: Diminished breath sounds bilaterally. HEART: Heart sounds are regular. NEUROLOGIC: She appears to be stable, moving all the extremities. REVIEW OF SYSTEMS: Not possible because she has intermittent confusion. LABORATORY DATA: Hemoglobin 9, hematocrit 28.3. Sodium 136, potassium 3.7, creatinine is 0.5. The patient back into sinus rhythm. As mentioned, she was in atrial fibrillation earlier and she received IV Lopressor and digoxin yesterday and now she is in sinus rhythm. Chest x-ray demonstrated no evidence of any pulmonary edema. IMPRESSION: The patient with elevated troponin, multifactorial, probably from shock, probably from rapid AFib, also known history of coronary artery disease. Echocardiogram has not been read, but from looking at the pictures shows an ejection fraction about 45 to 50% with critical aortic stenosis with a mean gradient of 45 mmHg. The patient is on amiodarone 400 b.i.d., which will be continued. Continue the other medications. Code status has been addressed. The patient is already on IV antibiotics, lisinopril, amiodarone, metoprolol, clopidogrel. Condition is guarded and we will follow up. [place], [place] PROGRESS NOTE NAME: SARAH OLIVAS UNIT #: [id number] ROOM: [facility] DOCTOR: LESLIE BROWN MD BIRTHDATE: [birth year] LESLIE BROWN MD CM:PNTRANS 2 [id number] LESLIE BROWN MD 03/27/18 0733 interface
--- NOTE | ~2018-03-10 | PR ---
[place], [place] PROGRESS NOTE NAME: SARAH OLIVAS UNIT #: [id number] ROOM: [facility] DOCTOR: JOSE VILLATORO MD,LENIN BIRTHDATE: [birth year] DOS: 03/13/2018 SUBJECTIVE: The patient has been noted comfortable at this time, noted awake with improvement in the mental status, used the BiPAP for the patient yesterday and this morning for the patient was noted use of oxygen supplementation. She has not been reported any acute hemodynamic stability. The NG tube for the patient noted in place. She has been getting intravenous therapeutic heparin with current ventricular tachycardia. OBJECTIVE: VITAL SIGNS: Normal temperature, respiratory rate 20, pulse 67, blood pressure 131/45. Pulse ox saturation on 2 liters 99% saturation. HEENT: Examination shows head was atraumatic. Eyes nonicterus. NECK: Supple. CARDIOVASCULAR: S1, S2 is audible. LUNGS: The patient noted without any wheeze or crackles. ABDOMEN: Soft, nontender. EXTREMITIES: Show mild edema. LABORATORY DATA: The patient's CBC today, WBC count were noted normal. The PTT was noted therapeutic at 57. IMPRESSION: The patient with a recent history of Clostridium difficile colitis, resolved pneumonia previously, congestive heart failure, current change in mental status, oropharyngeal dysphagia. PLAN OF TREATMENT: No change from the pulmonary standpoint and the medical management will be recommended. Continue the BiPAP use at night. Oxygen supplementation during the day and other therapy, plan of management. Usual care, other supportive plan of treatment and care. LENIN GARCIA MD CM:PNTRANS [id number] LENIN VILLATORO MD 03/13/18 1434 interface
--- NOTE | ~2018-03-10 | PR ---
[place], [place] PROGRESS NOTE NAME: [facility]AH [facility]IVAS [facility] [id number] UNIT #: [id number] ROOM: [facility] DOCTOR: ALFIE ALLEN MD BIRTHDATE: [birth year] DOS: 03/14/2018 SUBJECTIVE: She is lying in bed. She is awake and alert, but she has tremors of parkinsonism, particularly the right hand. She is saying something which is not very clear. She has oxygen on and is not tachypneic. Complexion is pale. Pulse is regular about 84 beats per minute, blood pressure 148/69. JVP is normal. She has crackles in both lungs with reduced breath sounds and no edema in the lower extremities. Murmur of aortic stenosis is significant. IMPRESSION: 1. This patient had atrial fibrillation with rapid ventricular rate, which was controlled with the medications and then amiodarone was added and she reverted to normal sinus rhythm. It had stayed so with some PACs now. 2. She had an anterior wall myocardial infarction; however, an echocardiogram demonstrated normal LV systolic function. 3. There is no obvious evidence of cardiac decompensation. Probable ventricular tachycardia, but no documented was available. No new recommendations. ALFIE ALLEN MD CM:PNTRANS [phone] ALFIE ALLEN MD 03/29/18 0824 interface
--- NOTE | ~2018-03-10 | CON ---
[place], [place] REPORT OF CONSULTATION NAME: SARAH OLIVAS UNIT #: [id number] ROOM: [facility] DOCTOR: LENIN LAW MD BIRTHDATE: [birth year] DOS: 03/12/2018 REASON FOR CONSULTATION: Assess the patient for current respiratory issues and other problems. HISTORY OF PRESENT ILLNESS: This is an 82-year-old white female who has been admitted in this hospital previously and then later on admitted at [facility] for several weeks. The patient was discharged to the [facility] from 01/30/2018 until 02/02/2018. The patient remains at [facility] on 02/02/2018 and discharged to the [facility]. The patient noted stable with significant improvement on 03/09/2018. The patient was sent back to the hospital, as the patient has been reported with symptoms of increased lethargy. She arrived in the Emergency and noted with evidence of ventricular tachycardia. The patient was given 300 mg amiodarone. The patient's heart rate were noted, converted to normal sinus rhythm. She has been currently admitted in the Intensive Care Unit. The patient was also reported with sinusitis on the CT scan that was completed in the Emergency Room. This morning, the patient has been still noted with mild lethargy, but not noted with complete unresponsiveness. She has been noted without any signs of distress. The patient received the cardiac shock in the Emergency Room because of ventricular tachycardia. Troponin has been reported to be elevated for the patient on this admission at 3.9. The patient is unable to give any history. All the history the patient contains is documented essentially with the medical record from [facility] and then her previous hospitalization in [facility]. She has been admitted in [facility] and noted progressive acute severe hypoxic respiratory failure. The patient requiring mechanical ventilation. The organism were noted with MRSA. She was also noted colonization with VRE of the urine. PAST MEDICAL HISTORY: 1. Coronary artery disease. 2. Type 2 diabetes mellitus. 3. Essential hypertension. 4. Anxiety and depression. 5. Osteoarthritis. 6. Past syncopal episode. 7. History of urinary tract infection. 8. History of chronic pain. 9. Decreased mobility. 10. Question of dementia. 11. The patient with evidence of intubation, mechanical ventilation for respiratory failure and management. Subsequently, the patient on mechanical ventilation. 12. Oropharyngeal dysphagia. 13. Severe protein-calorie malnutrition, resolved. 14. Clostridium difficile colitis, which has also been noted in the [facility]. The patient treated with oral vancomycin and Flagyl combination. PAST SURGICAL HISTORY: 1. Noted with cardiac catheterization, coronary artery stent, and angioplasty. [place], [place] REPORT OF CONSULTATION NAME: SARAH OLIVAS UNIT #: [id number] ROOM: [facility] DOCTOR: JOSE VILLATORO MD,LENIN BIRTHDATE: [birth year] 2. Cholecystectomy. 3. Trimalleolar fracture. 4. Intubation and mechanical ventilation. 5. Bronchoscopy. FAMILY HISTORY: The family history of patient was unknown. SOCIAL HISTORY: The patient [place] a [place]. The patient has a court appointed power of trademark attorney. There was no past history of tobacco, alcohol or any illicit drug use was known. The code status of the patient was noted as a full code. CURRENT MEDICATIONS: Medications which has been administered to the patient on this admission are; 1. Amiodarone 400 mg p.o. b.i.d. 2. Nitroglycerin paste 0.5 mg topically apply every 6 hours. 3. Metoprolol tartrate 25 mg p.o. b.i.d. 4. Plavix 75 mg daily. 5. Sliding scale insulin coverage. 6. IV meropenem for this patient. Previous digoxin administration and other p.r.n. medications. DRUG ALLERGY HISTORY: Noted as allergies to; 1. PENICILLIN. 2. VICODIN. 3. CIPROFLOXACIN. 4. ROCEPHIN. PHYSICAL EXAMINATION: GENERAL: This is an 82-year-old white female patient who has been noted currently lethargic, but also to vocal commands. Could not have a normal conversation. VITAL SIGNS: The patient showed normal temperature, respiratory rate 21. This morning, heart rate 80, blood pressure 123/55. Pulse ox saturation on 2 liters at night, nasal cannula 96% saturation. HEENT: Shows head was atraumatic. Eyes nonicterus. NECK: Supple. CARDIOVASCULAR SYSTEM: S1, S2 audible. LUNGS: Noted without any wheezing or crackles at the present time. ABDOMEN: Soft, nontender. Bowel sounds present. EXTREMITIES: The patient noted without any clubbing, cyanosis. Mild edema of the extremities. VISIBLE SKIN: No lesions or rashes. CENTRAL NERVOUS SYSTEM: The patient with some lethargy. LABORATORY DATA: CBC of the patient on 03/10/2018, WBC count 17.3, hemoglobin 11.6, hematocrit 36.1, platelet count were normal. CMP of the patient on 03/10/2018, BUN 13, creatinine 1.07. CO2 20. Troponin 3.93. CT scan of the head for the patient was reported with findings of small vessel ischemic changes. The patient's left sphenoid sinus suspicious for sinusitis. CT scan [place], [place] REPORT OF CONSULTATION NAME: SARAH OLIVAS UNIT #: [id number] ROOM: [facility] DOCTOR: JOSE VILLATORO MD,[facility] BIRTHDATE: [birth year] of the abdomen and pelvis done for the patient on 03/10/2018, reported by the radiologist as a nonobstructive calculi of the right lower pole of the kidney. Small left pleural fluid was also noted. PT and PTT of the patient was noted as normal on 03/10/2018. Lactic acid 4.7, then 3.8. CBC of the patient done yesterday, WBC count persistently elevated at 17.2, hemoglobin 11. CMP for the patient noted as BUN 23, creatinine was normal, glucose 194. The CMP of the patient that was done on 03/12/2018, glucose 189, BUN 25, creatinine was normal. Sodium 135, potassium 3.4. AST 243. CBC of the patient with persistent elevation of WBC count 17.2. Chest x-ray of the patient noted as no acute abnormality. Chest x-ray on 03/10/2018 for the patient was noted, NG tube in place without any acute pulmonary infiltration. Multilumen catheter was also inserted for the patient. Later on, the patient on 03/10/2018 shows no acute pulmonary infiltration. Chest x-ray of the patient that was done on 03/11/2018 was noted negative for any pulmonary infiltration. IMPRESSION: 1. The patient has been previously treated for the acute pneumonia. Methicillin-resistant Staphylococcus aureus, resolved. 2. Clostridium difficile colitis. 3. Leukocytosis. BMP still related to the ongoing Clostridium difficile colitis as the previous C. diff toxin after 2 weeks of treatment noted positive. The patient receiving the Flagyl and vancomycin, which has not been seen and administered at this time. No acute change in mental status, multifactorial. 4. Oropharyngeal dysphagia. Currently, has an NG tube in place as well. 5. Overall severe debility, multiple problems. The patient remains unchanged. PLAN OF MANAGEMENT: Ordered another stool for Clostridium difficile toxin for the patient again today. The patient needs to be started back on the treatment for C. diff colitis. She may not require any other antibiotic. At this time, the culture needs to be monitored. Other additional treatment changes to be made for this patient based on the progression of the illness. LENIN GARCIA MD CM:CONSTR:REPORT OF CONSULTATION 1049 03/12/18 2338 interface
--- NOTE | ~2018-03-10 | PR ---
[place], [place] PROGRESS NOTE NAME: SARAH OLIVAS UNIT #: [id number] ROOM: [facility]- DOCTOR: JOSE VILLATORO MD,LENIN BIRTHDATE: [birth year] DOS: 03/14/2018 SUBJECTIVE: The patient was noted comfortable at this time, noted awake. The NG tube remains in place. She has not been noted symptoms of chest pain or abdominal pain, on was noted as negative. OBJECTIVE: VITAL SIGNS: For the patient which has been recorded showed normal temperature, respiratory rate 26, heart rate 71, blood pressure 122/66. The pulse ox saturation 1-1/2 liters nasal cannula 93% saturation. HEENT: Examination shows head was atraumatic. Eyes nonicterus. NECK: Supple. CARDIOVASCULAR: S1, S2 is audible. LUNGS: The patient was noted without any wheeze or crackles at this time. ABDOMEN: Soft, nontender. Bowel sounds present. EXTREMITIES: Noted mild edema. LABORATORY DATA: PTT noted therapeutic. Stool for C. diff toxin negative. IMPRESSION: 1. Resolution of the clostridium difficile colitis, stable. 2. Respiratory failure. 3. Change in mental status. 4. Debility for the patient, which has been noted chronic. 5. Mild peripheral edema. 6. Ventricular tachycardia. PLAN OF MANAGEMENT: No changes in the plan of care at this time. Continue the current therapy plan of care for the patient as in progress. LENIN GARCIA MD CM:PNTRANS [id number] LENIN VILLATORO MD 03/29/18 0822 interface
--- NOTE | ~2018-03-10 | CON ---
[place], [place] REPORT OF CONSULTATION NAME: [id number] UNIT #: [id number] [facility] DOCTOR: ALFIE ALLEN MD BIRTHDATE: [birth year] DOS: HISTORY OF PRESENT ILLNESS: This is an 82-year-old -[place] woman whom I have seen in this hospital a few times. She was admitted a couple of months ago with heart failure and was found to be in atrial fibrillation. She has coronary artery disease and had LAD stent in the remote past. She has essential hypertension, type 2 diabetes mellitus, chronic diastolic heart failure and also aortic stenosis, which was at least moderate in severity, also morbid obesity, arthritis. She had chronic respiratory failure and was on the ventilator. She was transferred to [facility] where she stayed on BiPAP. She was sent to group home day after that. She apparently became unresponsive. EMS found her to be in ventricular tachycardia and she was intubated and brought to the Emergency Department from where she was admitted. She has had atrial fibrillation and has complete left bundle branch block, tachycardia would look like ventricular tachycardia. She had a troponin of 3 on arrival and it had increased to 121 on the 2nd measurement. MEDICATIONS: Reviewed. PHYSICAL EXAMINATION: GENERAL: The patient who is not responding to severe pain from the stimulation; however, she opened her eyes on asking and follows simple commands. Her complexion is very pale. She is not diaphoretic and extremities are warm. VITAL SIGNS: Pulse is 88 and regular, blood pressure 163/93. NECK: JVP appears to be normal. Difficult to assess. HEART: Cardiac auscultation revealed distant heart sound and mid peaking, cooing murmur of aortic stenosis. EXTREMITIES: She has trace edema in the pretibial area. Areas in the feet are warm. Auscultation reveals diminished breath sounds with crackles in both lungs. She is on BiPAP at this time. LABORATORY DATA: An ECG showed atrial fibrillation with rapid ventricular rate, incomplete left bundle branch block. Heart rate was rather fast. She was given IV Lopressor. Heart rate slowed down and she reverted to normal sinus rhythm, which the monitor shows now. Renal function is normal. Hemoglobin 11.6. WBC 17.3. IMPRESSION: 1. This patient with known coronary artery disease, has had a large acute myocardial infarction. She is hemodynamically stable. 2. Atrial fibrillation has reverted to normal sinus rhythm. 3. Probable ventricular tachycardia. Initial unresponsiveness in the ER was documented and perhaps was thought to be due to anoxic encephalopathy; however, she seemed to have improved. This patient's condition generally is very poor. She has been on BiPAP and has [place], [place] REPORT OF CONSULTATION NAME: SARAH OLIVAS UNIT #: [id number] ROOM: [facility] DOCTOR: TIFFANY KIRKPATRICK,ALFIE BIRTHDATE: [birth year] had recurrent admissions for the last 2-3 months. Overall, prognosis is poor and if the family wishes to give DNR status, I think that would be appropriate. I would not recommend any diagnostic heart catheterization for this patient. IV amiodarone can be continued because he is maintaining normal sinus rhythm and blood pressure is a little bit on the high side and can be controlled with IV nitroglycerin, which would be of some help in this patient with acute WA. I thank for this consult. ALFIE ALLEN MD CM:CONSTR:REPORT OF CONSULTATION 0657 03/11/18 2211 interface
--- NOTE | ~2018-03-10 | EKG ---
[place], [place] ELECTROCARDIOGRAM REPORT NAME: SARAH OLIVAS UNIT #: [id number] ROOM: [facility] DOCTOR: TIFFANY KIRKPATRICK,ALFIE BIRTHDATE: [birth year] DOS: 03/10/2018 TIME: 1357 hours. FINDINGS: 1. Most likely normal sinus rhythm at 88 beats per minute. 2. Complete left bundle branch block with marked left axis deviation. 3. An abnormal ECG. 4. No previous tracing is available for comparison. ALFIE ALLEN MD CM:EKGRPT:ELECTROCARDIOGRAM REPORT 1109 1241 ALFIE ALLEN MD
--- NOTE | ~2018-03-10 | PR ---
[place], [place] PROGRESS NOTE NAME: SARAH OLIVAS UNIT #: [id number] ROOM: [facility]- DOCTOR: JOSE VILLATORO MD,LENIN BIRTHDATE: [birth year] DOS: 03/18/2018 SUBJECTIVE: The patient noted comfortable at this time without any acute distress, resting in the bed, was noted fully awake and alert, and does not require any oxygen supplementation. NG tube remains in place. OBJECTIVE: VITAL SIGNS: The patient showed normal temperature, respiratory rate 22, heart rate 60, blood pressure 143/79. Pulse ox saturation on room air 94% saturation. HEENT: Examination shows head was atraumatic. Eye, nonicterus. NECK: Supple. CARDIOVASCULAR: S1, S2 audible. LUNGS: Noted without any wheezing or crackles at the present time. ABDOMEN: Soft and obese. EXTREMITIES: Without acute edema. LABORATORY DATA: BMP: Sodium 132, chloride of 96. IMPRESSION: 1. The patient with oropharyngeal dysphagia with recurrent congestive heart failure, seemed to be improving with electrolyte imbalance and hyponatremia. 2. The patient with previous protein calorie malnutrition. 3. Resolution of the C. diff colitis. PLAN OF MANAGEMENT: Continue current therapy, plan of management as in progress without any changes. Continue nutritional support with aspiration precaution to prevent any pneumonia. She does not have any active pneumonia at this time. LENIN GARCIA MD CM:PNTRANS 1356 14 LENIN VILLATORO MD 03/18/182113 interface
--- NOTE | ~2018-03-10 | EKG ---
[place], [place] ELECTROCARDIOGRAM REPORT NAME: SARAH OLIVAS UNIT #: [id number] ROOM: [facility] DOCTOR: TIFFANY KIRKPATRICK,ALFIE BIRTHDATE: [birth year] DOS: 03/10/2018 TIME: 1836 hours FINDINGS: 1. Atrial fibrillation with rapid ventricular rate of 147 beats per minute. 2. Marked left axis deviation. 3. Complete left bundle branch block. When compared with an ECG done at 1357 of the same day, sinus rhythm has been replaced by atrial fibrillation. ALFIE ALLEN MD CM:EKGRPT:ELECTROCARDIOGRAM REPORT 1109 1243 ALFIE ALLEN MD
--- NOTE | ~2018-03-10 | PR ---
[place], [place] PROGRESS NOTE NAME: SARAH OLIVAS UNIT #: [id number] ROOM: [facility] DOCTOR: ALFIE ALLEN MD BIRTHDATE: [birth year] DOS: 03/12/2018 SUBJECTIVE: She is not on BiPAP. She is awake, very weak. She barely kind of whisper, but appears to be comfortable. She has no chest pain now. She is really comfortable and is asking for tobin. OBJECTIVE: GENERAL: Complexion is pale. VITAL SIGNS: Pulse is regular at 80, blood pressure 120/55. NECK: JVP appears to be normal. LUNGS: Breath sounds are fairly decent with very few adventitious sounds. LABORATORY DATA: Monitor shows normal sinus with a heart rate in the 80s. She was in atrial fibrillation with rapid rate yesterday. She received IV Lopressor and also one dose of digoxin yesterday. I reviewed the chest x-ray yesterday, which demonstrates no pulmonary edema. Troponin I exceeded 200. IMPRESSION: This patient had a large anterior wall myocardial infarction, but surprisingly there does not seem to be any cardiac decompensation. RECOMMENDATIONS: An echocardiogram and continue with amiodarone 400 b.i.d. for about 5 days or so and then reduce the dose to 200 mg once a day. She will require beta praful and CHINTAN inhibitor. ALFIE ALLEN MD CM:PNTRANS 1143 00 ALFIE ALLEN MD 03/12/18 230 interface
--- NOTE | ~2018-03-10 | PR ---
[place], [place] PROGRESS NOTE NAME: SARAH OLIVAS UNIT #: [id number] ROOM: [facility] DOCTOR: LENIN LAW MD BIRTHDATE: [birth year] DOS: 03/17/2018 PULMONARY PROGRESS NOTE SUBJECTIVE: The patient was noted completely off the oxygen supplementation this morning. She has been noted on room air. NG tube remains in place. We recommend a PEG tube insertion after the assessment of the speech therapist. A decision at this time has not been available for the patient ordered court appointed power of assistant attorney general. OBJECTIVE: VITAL SIGNS: For the patient which has been recorded shows the temperature noted as normal. The respiratory rate recorded as 19, heart rate 60, blood pressure 142/78. Pulse ox 98% saturation. Resting room air. HEENT: Examination shows head was atraumatic. Eyes nonicterus. NECK: Supple. CARDIOVASCULAR: S1, S2 audible. LUNGS: Clear to auscultation bilaterally. ABDOMEN: Soft, nontender. EXTREMITIES: With resolving edema. LABORATORY DATA: Sodium was noted 132, normal BUN and creatinine. Ultrasound of the left upper extremity was noted without any evidence of DVT for the patient yesterday. CBC noted normal WBC count. IMPRESSION: The patient has stable respiratory status, resolving acute hypoxic respiratory failure, resolved Clostridium difficile colitis. Oropharyngeal dysphagia. The patient was generally weak and fatigued. PLAN OF TREATMENT: No changes in the plan of care for the patient at this time. Continuation of the current plan of management is in progress. Usual care, other supportive plan of therapy and care. Still awaiting for the patient's decision for PEG tube insertion. At this time, the patient has NG tube in place, which will be continued for the nutritional support. [place], [place] PROGRESS NOTE NAME: SARAH OLIVAS UNIT #: [id number] ROOM: [facility] DOCTOR: LENIN LAW MD BIRTHDATE: [birth year] LENIN GARCIA MD CM:PNTRANS [id number] LENIN VILLATORO MD 03/28/18 0806 interface
--- NOTE | ~2018-03-10 | PR ---
[place], [place] PROGRESS NOTE NAME: SARAH OLIVAS UNIT #: [id number] ROOM: [facility]- DOCTOR: JOSE VILLATORO MD,LENIN BIRTHDATE: [birth year] DOS: 03/16/2018 PULMONARY PROGRESS NOTE SUBJECTIVE: She has been noted awake, alert. NG tube remains in place. She has not been noted with symptoms of chest pain, coughing, or any sputum expectoration. OBJECTIVE: VITAL SIGNS: Which have been recorded show temperature normal, respiratory rate 20, heart rate 77, blood pressure 165/62. Pulse oxygen saturation recorded on 2 liters nasal cannula as 98% saturation. HEENT: Head was atraumatic. Eyes nonicterus. NECK: Supple. CARDIOVASCULAR: S1, S2 audible. LUNGS: Noted without any crackles, rhonchi, or wheezing. ABDOMEN: Soft, obese, nontender. EXTREMITIES: Resolving edema. IMPRESSION: Stable respiratory status with acute hypoxia, [id number] hypoxic respiratory failure, improving edema of the extremities, resolved Clostridium difficile colitis. PLAN OF THERAPY: No changes in the plan of management at this time. Continue the patient's current therapy plan of care as previously in progress. Usual care and plan of management. LENIN GARCIA MD CM:PNTRANS 1323 1508 LENIN VILLATORO MD 03/16/18 1507 interface
--- NOTE | ~2018-03-10 | PR ---
[place], [place] PROGRESS NOTE NAME: SARAH OLIVAS UNIT #: [id number] ROOM: [facility]- DOCTOR: JOSE VILLATORO MD,LENIN BIRTHDATE: [birth year] DOS: 03/19/2018 PULMONARY PROGRESS NOTE SUBJECTIVE: The patient noted comfortable at this time without any acute distress at this time, resting comfortably, has not been reported any symptoms of chest pain or any abdominal pain. She has an NG tube in place. Feeding was continued from NG tube. She does not require use of the oxygen or BiPAP. OBJECTIVE: VITAL SIGNS: Normal temperature, respiratory rate 20, heart rate 64, blood pressure 158/73. Pulse ox saturation on room air 95% saturation. HEENT: Examination shows head was atraumatic. Eyes nonicterus. NECK: Supple. CARDIOVASCULAR: S1, S2 audible. LUNGS: Noted clear to auscultation bilaterally. ABDOMEN: Soft and obese. EXTREMITIES: Shows minimal edema. IMPRESSION: 1. Overall stable respiratory status resolution of acute hypoxic respiratory failure. 2. Oropharyngeal dysphagia as well. 3. Debility persisted. 4. Resolution of C. diff colitis. PLAN OF THERAPY: No changes in plan of care at this time from pulmonary standpoint. Continue the patient's current plan of management as in progress. Usual care. Other supportive plan of management and treatments. LENIN GARCIA MD CM:PNCASSANDRA 0919 225 LENIN VILLATORO MD 03/19/18 225 interface
--- NOTE | ~2018-03-10 | PR ---
[place], [place] PROGRESS NOTE NAME: SARAH OLIVAS UNIT #: [id number] ROOM: [facility] DOCTOR: LENIN LAW MD BIRTHDATE: [birth year] DOS: 03/15/2018 SUBJECTIVE: The patient remains on the intravenous heparin, noted awake and alert. NG tube in place. There were no symptoms of shortness of breath reported. No symptoms of chest pain or hemoptysis. The patient's code status remains full code. She has been currently using oxygen supplementation without any BiPAP use. OBJECTIVE: VITAL SIGNS: Normal temperature, respiratory rate 24, heart rate 74, and blood pressure 115/77. Pulse ox saturation 1 liter nasal cannula 90% saturation. HEENT: Head was atraumatic. Eyes nonicterus. NECK: Supple. CARDIOVASCULAR: S1, S2 audible. LUNGS: The patient was noted without any wheezing or crackles at the present time. ABDOMEN: Soft, nontender. Bowel sounds present. EXTREMITIES: The patient noted without any acute edema. Mild edema remains persistent. LABORATORY DATA: CBC was noted normal WBC count. PTT noted therapeutic. Second set of stool for C. diff toxin noted negative as well. IMPRESSION: 1. Resolution of clostridium difficile colitis this time, stable respiratory failure. 2. Ventricular tachycardia, current anticoagulation. Peripheral edema still persisted. 3. Oropharyngeal dysphagia. PLAN OF TREATMENT: No changes from the pulmonary standpoint at this time will be necessary. Continue the patient's current plan of management as in progress. Usual care. All other supportive therapy, plan of care and management. [place], [place] PROGRESS NOTE NAME: SARAH OLIVAS UNIT #: [id number] ROOM: [facility] DOCTOR: LENIN LAW MD BIRTHDATE: [birth year] LENIN GARCIA MD CM:PNTRANS [id number] LENIN VILLATORO MD 04/13/18 0814 interface
[~2018-03-10 13:57] MED LIST changes: +CALCIUM 500 +1 EAC1 PO; +Humalog SQ; +K-PHOS500 MG PO; +MERREM IV1 GM IV; -THERA-D4000 UNIT PO; +VITAMIN D31000 UNI1 PO; +ZYVOX600 MG/300 IV
[2018-03-10 14:42] LABS: BASO # 0.1 10*3/uL (0.0-0.1); BASO % 0.3 % (0.0-1.0); EOS # 0.1 10*3/uL (0.0-0.4); EOS % 0.7 % (1.0-4.0); HEMATOCRIT 36.1 % (37.0-47.0); HEMOGLOBIN 11.6 g/dl (12.0-16.0); LYMPH % 11.5 % (27.0-41.0); MEAN CORPUSCULAR HGB 30.9 pg (27.0-31.0); MEAN CORPUSCULAR HGB CONC 32.1 g/dl (33.0-37.0); MEAN PLATELET VOLUME 9.4 fl (9.6-12.3); NEUT # 13.8 10*3/uL (2.3-7.9); NEUT % 79.8 % (47.0-73.0); PLATELET COUNT AUTOMATED 470 10*3/uL (130-400); RED BLOOD COUNT 3.76 10*6/uL (4.10-5.10); RED CELL DISTRI WIDTH 15.8 % (0-14.5); WHITE BLOOD COUNT 17.3 10*3/uL (4.8-10.8)
[2018-03-10 15:02] LABS: ALBUMIN 2.9 gm/dl (3.1-4.5); CREATININE 1.07 mg/dL (0.55-1.02); POTASSIUM 4.1 mmol/L (3.5-5.1); TOTAL PROTEIN 7.8 gm/dL (6.4-8.2)
[2018-03-10 15:14] LABS: TROPONIN I 3.93 ng/ml (<0.045)
[2018-03-10 15:30] LABS: BILIRUBIN NEGATIVE (NEGATIVE); BLOOD NEGATIVE (NEGATIVE); CLARITY SL CLOUDY (CLEAR); COLOR YELLOW (YELLOW); GLUCOSE NEGATIVE (NEGATIVE); KETONE TRACE (NEGATIVE); LEUKO ESTERASE TRACE (NEGATIVE); NITRITE POSITIVE (NEGATIVE); UROBILINOGEN 0.2 E.U./dl (0.2-1.0)
[2018-03-10 15:39] LABS: BACTERIA 4+; MUCOUS TRACE; RBC 0-2 rbc/hpf (0-2); WBC 16-20 wbc/hpf (0-5)
[2018-03-10] MEDS ORDERED: TYLENOL325 M1 PO (17:13)
[2018-03-10] MEDS ORDERED: ALBUTEROL2.5 MG/0.5 INH (17:14)
[2018-03-10] MEDS ORDERED: COREG3.125 MG PO (17:14)
[2018-03-10] MEDS ORDERED: LIPITOR10 MG PO (17:14)
[2018-03-10] MEDS ORDERED: PLAVIX75 M1 PO (17:15)
[2018-03-10] MEDS ORDERED: DUONEB 3 MG/3 ML3 M1 INH (17:16)
[2018-03-10] MEDS ORDERED: CYMBALTA30 MG PO (17:16)
[2018-03-10] MEDS ORDERED: LASIX40 MG PO (17:17)
[2018-03-10] MEDS ORDERED: MAGNESIUM400 M1 PO (17:18)
[2018-03-10] MEDS ORDERED: LANTUS SOL100 UNIT/1 SQ (17:18)
[2018-03-10] MEDS ORDERED: FLAGYL250 MG PO (17:20)
[2018-03-10] MEDS ORDERED: MICRO-GUARD85 GM T (17:22)
[2018-03-10] MEDS ORDERED: MIDODRINE HCL5 M1 PO (17:24)
[2018-03-10] MEDS ORDERED: PROTONIX40 M2 PO (17:25)
[2018-03-10] MEDS ORDERED: CALCIUM500 M1 PO (17:25)
[2018-03-10] MEDS ORDERED: PHOS-NAK PACKE1 EACH PO (17:27)
[2018-03-10] MEDS ORDERED: ZANAFLEX CAPSULE4 MG PO (17:28)
[2018-03-10] MEDS ORDERED: K-LOR 20MEQ20 ME1 PO (17:28)
[2018-03-10] MEDS ORDERED: ULTRAM50 MG PO (17:29)
[2018-03-10] MEDS ORDERED: VITAMIN D31000 UNI1 PO (17:31)
[2018-03-10] MEDS ORDERED: FIRVANQ50 MG/1 ML PO (17:31)
[2018-03-10] MEDS ORDERED: NOVOLOG100 UNIT/1 SQ (17:34)
[2018-03-10 18:23] LABS: ACT PARTIAL THROMBO TIME 27.1 SECONDS (20.8-31.5); INTERNATIONAL NORM RATIO 1.1 (2.0-3.5)
[2018-03-11] VITALS (12 sets, daily range): BP systolic 92–166; BP diastolic 41–86
[2018-03-11 03:03] LABS: BASO % 0.2 % (0.0-1.0); HEMATOCRIT 34.5 % (37.0-47.0); HEMOGLOBIN 11.4 g/dl (12.0-16.0); LYMPH # 1.2 10*3/uL (1.3-4.4); MEAN CELL VOLUME 94.3 fl (81.0-99.0); MEAN CORPUSCULAR HGB 31.1 pg (27.0-31.0); MEAN PLATELET VOLUME 9.1 fl (9.6-12.3); MONO # 1.2 10*3/uL (0.1-1.0); MONO % 6.8 % (3.0-9.0); NEUT # 14.7 10*3/uL (2.3-7.9); NEUT % 85.4 % (47.0-73.0); PLATELET COUNT AUTOMATED 433 10*3/uL (130-400); RED BLOOD COUNT 3.66 10*6/uL (4.10-5.10); RED CELL DISTRI WIDTH 15.8 % (0-14.5); WHITE BLOOD COUNT 17.2 10*3/uL (4.8-10.8)
[2018-03-11 03:17] LABS: ALBUMIN 2.8 gm/dl (3.1-4.5); ALKALINE PHOSPHATASE 83 U/L (45-117); CHLORIDE 102 mmol/L (98-107); CREATININE 0.92 mg/dL (0.55-1.02); PHOSPHOROUS 3.4 mg/dL (2.5-4.9); SGOT/AST 658 IU/L (3-35); SGPT/ALT 73 U/L (12-78); SODIUM 139 mmol/L (136-145); TOTAL PROTEIN 7.5 gm/dL (6.4-8.2)
[2018-03-11 03:18] LABS: BUN 23 mg/dl (7-24)
[2018-03-12] VITALS: BP 126/51
[2018-03-12 04:20] VITALS: BP 133/47
[2018-03-12 05:55] LABS: HEMATOCRIT 30.7 % (37.0-47.0); HEMOGLOBIN 9.8 g/dl (12.0-16.0); MEAN CORPUSCULAR HGB 30.3 pg (27.0-31.0); MEAN CORPUSCULAR HGB CONC 31.9 g/dl (33.0-37.0); MEAN PLATELET VOLUME 9.4 fl (9.6-12.3); PLATELET COUNT AUTOMATED 369 10*3/uL (130-400); RED BLOOD COUNT 3.23 10*6/uL (4.10-5.10); WHITE BLOOD COUNT 17.2 10*3/uL (4.8-10.8)
[2018-03-12 06:10] LABS: ALBUMIN 2.6 gm/dl (3.1-4.5); ALKALINE PHOSPHATASE 69 U/L (45-117); BUN 25 mg/dl (7-24); CHLORIDE 98 mmol/L (98-107); CREATININE 0.72 mg/dL (0.55-1.02); POTASSIUM 3.4 mmol/L (3.5-5.1); SGOT/AST 243 IU/L (3-35); SGPT/ALT 48 U/L (12-78); SODIUM 135 mmol/L (136-145); TOTAL PROTEIN 6.8 gm/dL (6.4-8.2)
[2018-03-12 07:05] LABS: TOTAL CELLS COUNTED 100 #CELLS
[2018-03-12 07:06] LABS: PLATELET SUFFICIENCY NORMAL (NORMAL); POLYCHROMASIA SLIGHT
[2018-03-12 08:00] VITALS: BP 123/55
[2018-03-12 12:00] VITALS: BP 145/66
[2018-03-12 16:00] VITALS: BP 113/57
[2018-03-12 20:07] VITALS: BP 106/61
[2018-03-13 00:02] VITALS: BP 126/51
[2018-03-13 04:00] VITALS: BP 131/45
[2018-03-13 06:02] LABS: BASO % 0.1 % (0.0-1.0); EOS # 0.1 10*3/uL (0.0-0.4); EOS % 1.1 % (1.0-4.0); HEMATOCRIT 28.3 % (37.0-47.0); LYMPH # 1.1 10*3/uL (1.3-4.4); LYMPH % 10.9 % (27.0-41.0); MEAN CELL VOLUME 94.6 fl (81.0-99.0); MEAN CORPUSCULAR HGB 30.1 pg (27.0-31.0); MEAN CORPUSCULAR HGB CONC 31.8 g/dl (33.0-37.0); MEAN PLATELET VOLUME 9.6 fl (9.6-12.3); MONO # 1.2 10*3/uL (0.1-1.0); MONO % 12.8 % (3.0-9.0); NEUT # 7.2 10*3/uL (2.3-7.9); NEUT % 74.6 % (47.0-73.0); PLATELET COUNT AUTOMATED 329 10*3/uL (130-400); RED BLOOD COUNT 2.99 10*6/uL (4.10-5.10); WHITE BLOOD COUNT 9.6 10*3/uL (4.8-10.8)
[2018-03-13 06:15] LABS: ALBUMIN 2.3 gm/dl (3.1-4.5); ALKALINE PHOSPHATASE 67 U/L (45-117); BUN 24 mg/dl (7-24); CHLORIDE 102 mmol/L (98-107); CREATININE 0.57 mg/dL (0.55-1.02); POTASSIUM 3.7 mmol/L (3.5-5.1); SGOT/AST 92 IU/L (3-35); SGPT/ALT 33 U/L (12-78); SODIUM 136 mmol/L (136-145); TOTAL PROTEIN 6.5 gm/dL (6.4-8.2)
[2018-03-13 06:21] LABS: PHOSPHOROUS 0.9 mg/dL (2.5-4.9)
[2018-03-13 08:00] VITALS: BP 144/58
[2018-03-13 12:00] VITALS: BP 141/64
[2018-03-13 16:00] VITALS: BP 133/57
[2018-03-13 20:00] VITALS: BP 148/72
[2018-03-14] VITALS: BP 132/70
[2018-03-14 04:00] VITALS: BP 128/80
[2018-03-14 08:00] VITALS: BP 122/56
[2018-03-14 12:00] VITALS: BP 153/68
[2018-03-14 16:00] VITALS: BP 148/69
[2018-03-14 20:00] VITALS: BP 139/64
[2018-03-15] VITALS: BP 136/85
[2018-03-15 04:03] VITALS: BP 127/97
[2018-03-15 05:16] LABS: ALBUMIN 2.4 gm/dl (3.1-4.5); ALKALINE PHOSPHATASE 76 U/L (45-117); BUN 16 mg/dl (7-24); CHLORIDE 97 mmol/L (98-107); CREATININE 0.56 mg/dL (0.55-1.02); PHOSPHOROUS 1.2 mg/dL (2.5-4.9); SGOT/AST 40 IU/L (3-35); SGPT/ALT 21 U/L (12-78); SODIUM 132 mmol/L (136-145); TOTAL PROTEIN 6.7 gm/dL (6.4-8.2)
[2018-03-15 06:22] LABS: BASO % 0.4 % (0.0-1.0); EOS # 0.4 10*3/uL (0.0-0.4); EOS % 5.7 % (1.0-4.0); HEMOGLOBIN 10.9 g/dl (12.0-16.0); LYMPH # 1.6 10*3/uL (1.3-4.4); LYMPH % 22.7 % (27.0-41.0); MEAN CORPUSCULAR HGB 30.4 pg (27.0-31.0); MEAN PLATELET VOLUME 9.9 fl (9.6-12.3); MONO % 13.5 % (3.0-9.0); NEUT # 4.2 10*3/uL (2.3-7.9); NEUT % 57.3 % (47.0-73.0); PLATELET COUNT AUTOMATED 355 10*3/uL (130-400); RED BLOOD COUNT 3.59 10*6/uL (4.10-5.10); RED CELL DISTRI WIDTH 16.2 % (0-14.5); WHITE BLOOD COUNT 7.2 10*3/uL (4.8-10.8)
[2018-03-15 06:23] LABS: HEMATOCRIT 36.3 % (37.0-47.0); MEAN CELL VOLUME 101.1 fl (81.0-99.0)
[2018-03-15 08:00] VITALS: BP 159/77
[2018-03-15 12:00] VITALS: BP 140/68
[2018-03-15 16:00] VITALS: BP 136/63
[2018-03-15 20:00] VITALS: BP 128/77
[2018-03-16] VITALS (7 sets, daily range): BP systolic 121–170; BP diastolic 70–90
[2018-03-16 06:12] LABS: BASO % 0.3 % (0.0-1.0); EOS # 0.5 10*3/uL (0.0-0.4); EOS % 6.7 % (1.0-4.0); HEMOGLOBIN 9.9 g/dl (12.0-16.0); LYMPH # 1.4 10*3/uL (1.3-4.4); LYMPH % 20.6 % (27.0-41.0); MEAN CORPUSCULAR HGB 30.7 pg (27.0-31.0); MEAN PLATELET VOLUME 9.6 fl (9.6-12.3); MONO # 0.9 10*3/uL (0.1-1.0); MONO % 13.6 % (3.0-9.0); NEUT % 58.2 % (47.0-73.0); PLATELET COUNT AUTOMATED 370 10*3/uL (130-400); RED BLOOD COUNT 3.23 10*6/uL (4.10-5.10); RED CELL DISTRI WIDTH 15.9 % (0-14.5); WHITE BLOOD COUNT 6.9 10*3/uL (4.8-10.8)
[2018-03-16 06:13] LABS: MEAN CELL VOLUME 92.9 fl (81.0-99.0)
[2018-03-16 06:22] LABS: ALBUMIN 2.3 gm/dl (3.1-4.5); ALKALINE PHOSPHATASE 75 U/L (45-117); BUN 15 mg/dl (7-24); CHLORIDE 96 mmol/L (98-107); CREATININE 0.58 mg/dL (0.55-1.02); PHOSPHOROUS 2.2 mg/dL (2.5-4.9); POTASSIUM 4.4 mmol/L (3.5-5.1); SGOT/AST 19 IU/L (3-35); SGPT/ALT 18 U/L (12-78); SODIUM 133 mmol/L (136-145); TOTAL PROTEIN 6.6 gm/dL (6.4-8.2)
[2018-03-17] VITALS: BP 142/78
[2018-03-17 04:00] VITALS: BP 142/68
[2018-03-17 05:46] LABS: ALBUMIN 2.4 gm/dl (3.1-4.5); ALKALINE PHOSPHATASE 80 U/L (45-117); BUN 14 mg/dl (7-24); CHLORIDE 96 mmol/L (98-107); CREATININE 0.56 mg/dL (0.55-1.02); PHOSPHOROUS 2.2 mg/dL (2.5-4.9); POTASSIUM 4.8 mmol/L (3.5-5.1); SGOT/AST 17 IU/L (3-35); SGPT/ALT 17 U/L (12-78); SODIUM 132 mmol/L (136-145); TOTAL PROTEIN 6.6 gm/dL (6.4-8.2)
[2018-03-17 06:11] LABS: BASO % 0.4 % (0.0-1.0); EOS # 0.5 10*3/uL (0.0-0.4); EOS % 6.1 % (1.0-4.0); HEMOGLOBIN 10.2 g/dl (12.0-16.0); LYMPH # 1.6 10*3/uL (1.3-4.4); LYMPH % 19.2 % (27.0-41.0); MEAN CELL VOLUME 94.7 fl (81.0-99.0); MEAN CORPUSCULAR HGB 30.2 pg (27.0-31.0); MEAN CORPUSCULAR HGB CONC 31.9 g/dl (33.0-37.0); MONO % 12.4 % (3.0-9.0); NEUT # 5.1 10*3/uL (2.3-7.9); NEUT % 61.1 % (47.0-73.0); PLATELET COUNT AUTOMATED 404 10*3/uL (130-400); RED BLOOD COUNT 3.38 10*6/uL (4.10-5.10); RED CELL DISTRI WIDTH 15.9 % (0-14.5); WHITE BLOOD COUNT 8.4 10*3/uL (4.8-10.8)
[2018-03-17 08:00] VITALS: BP 150/72
[2018-03-17 12:00] VITALS: BP 146/72
[2018-03-17 16:00] VITALS: BP 149/71
[2018-03-17 20:00] VITALS: BP 138/59
[2018-03-18] VITALS (7 sets, daily range): BP systolic 93–143; BP diastolic 39–73
[2018-03-18 05:49] LABS: BUN 15 mg/dl (7-24); CHLORIDE 96 mmol/L (98-107); CREATININE 0.52 mg/dL (0.55-1.02); POTASSIUM 4.7 mmol/L (3.5-5.1); SODIUM 132 mmol/L (136-145)
[2018-03-19] VITALS: BP 87/43
[2018-03-19 04:00] VITALS: BP 126/71
[2018-03-19 05:45] LABS: BUN 14 mg/dl (7-24); CHLORIDE 98 mmol/L (98-107); CREATININE 0.48 mg/dL (0.55-1.02); POTASSIUM 4.6 mmol/L (3.5-5.1); SODIUM 134 mmol/L (136-145)
[2018-03-19 08:00] VITALS: BP 158/73
[2018-03-19] MEDS ORDERED: ELIQUIS5 M1 PO (10:37)
[2018-03-19] MEDS ORDERED: Lantus SC (10:37)
[2018-03-19] MEDS ORDERED: LISINOPRIL20 MG PO (10:37)
[2018-03-19] MEDS ORDERED: Humalog SQ (10:37)
[2018-03-19] MEDS ORDERED: TIZANIDINE HCL2 MG PO (10:37)
[2018-03-19] MEDS ORDERED: PACERONE200 MG PO (10:37)
[2018-03-19] MEDS ORDERED: ALPRAZOLAM0.5 M3 NG (10:37)
[2018-03-19] MEDS ORDERED: TEMAZEPAM15 M1 PO (10:37)
[2018-03-19] MEDS ORDERED: NITRO-BID1 GM T (10:37)
[2018-03-19] MEDS ORDERED: BISACODYL LAXATI5 MG PO (10:37)
[2018-03-19] MEDS ORDERED: PROTONIX40 M1 IV (10:37)
[2018-03-19] MEDS ORDERED: Sinemet 25 MG-100 MG PO (10:37)
[2018-03-19] MEDS ORDERED: DUONEB 3 MG/3 ML3 M1 NEB (10:37)
[2018-03-19] MEDS ORDERED: GOOD SENSE400 MG/5 M PO (10:37)
[2018-03-19] MEDS ORDERED: MERREM IV1 GM IV (10:37)
[2018-03-19] MEDS ORDERED: LOPRESSOR25 MG PO (10:37)
== END 2018-03-19 13:40 | DRG 698 ==
LOC: ED 13:57 → EDHOLD 16:05 → ICCU 16:05
PROVIDERS: Emergency Medicine; Internal Medicine; Internal Medicine Cardiovascular Disease; Student in an Organized Health Care Education/Training Program
PROC: 02HV33Z Insertion of Infusion Device into Superior Vena Cava, Percutaneous Approach (ICD-10-PCS; principal; 2018-03-10)
PROC: 5A09357 Assistance with Respiratory Ventilation, Less than 24 Consecutive Hours, Continuous Positive Airway Pressure (ICD-10-PCS; principal; 2018-03-10)
PROC: B548ZZA Ultrasonography of Superior Vena Cava, Guidance (ICD-10-PCS; principal; 2018-03-10)
PROC: 5A09357 Assistance with Respiratory Ventilation, Less than 24 Consecutive Hours, Continuous Positive Airway Pressure (ICD-10-PCS; 2018-03-11)
DX: T83.511A Infection and inflammatory reaction due to indwelling urethral catheter, initial encounter (principal); A41.9 Sepsis, unspecified organism; I21.4 Non-ST elevation (NSTEMI) myocardial infarction; J96.21 Acute and chronic respiratory failure with hypoxia; E43 Unspecified severe protein-calorie malnutrition; I47.2 Ventricular tachycardia; E87.2 Acidosis; D68.59 Other primary thrombophilia; E11.65 Type 2 diabetes mellitus with hyperglycemia; I50.32 Chronic diastolic (congestive) heart failure; F33.9 Major depressive disorder, recurrent, unspecified; R13.12 Dysphagia, oropharyngeal phase; I11.0 Hypertensive heart disease with heart failure; G20 Parkinson's disease; I44.7 Left bundle-branch block, unspecified; Z66 Do not resuscitate; Z51.5 Encounter for palliative care; R10.84 Generalized abdominal pain; R74.0 Nonspecific elevation of levels of transaminase and lactic acid dehydrogenase [LDH]; I35.0 Nonrheumatic aortic (valve) stenosis; I48.91 Unspecified atrial fibrillation; E83.42 Hypomagnesemia; E83.39 Other disorders of phosphorus metabolism; E66.01 Morbid (severe) obesity due to excess calories; D64.9 Anemia, unspecified; J01.30 Acute sphenoidal sinusitis, unspecified; F41.9 Anxiety disorder, unspecified; Y83.8 Other surgical procedures as the cause of abnormal reaction of the patient, or of later complication, without mention of misadventure at the time of the procedure; G89.4 Chronic pain syndrome; M19.90 Unspecified osteoarthritis, unspecified site; I25.10 Atherosclerotic heart disease of native coronary artery without angina pectoris; Z88.8 Allergy status to other drugs, medicaments and biological substances; Z88.1 Allergy status to other antibiotic agents; Z88.0 Allergy status to penicillin; Z79.4 Long term (current) use of insulin; Z87.01 Personal history of pneumonia (recurrent); I25.2 Old myocardial infarction; Z87.440 Personal history of urinary (tract) infections; Z90.49 Acquired absence of other specified parts of digestive tract; Z95.5 Presence of coronary angioplasty implant and graft; Z82.5 Family history of asthma and other chronic lower respiratory diseases; Z68.32 Body mass index [BMI] 32.0-32.9, adult; Y92.89 Other specified places as the place of occurrence of the external cause

== ENCOUNTER 2018-09-14 12:18 | Emergency (ER) | payer MEDICARE ==
[~2018-09-14] VITALS: Ht 165.1 cm; Wt 93.0 kg
[~2018-09-14 12:18] MED LIST changes: +ALBUTEROL2.5 MG/0.5 INH; +ALPRAZOLAM0.5 M3 NG; +AMIODARONE HYD200 MG PEG; +BACITRACIN28.4 GM T; +BISACODYL LAXATI5 MG PO; +CALCIUM500 M1 PO; +CYMBALTA30 MG PO; +DUONEB 3 MG/3 ML3 M1 NEB; +ELIQUIS2.5 M1 PEG; +ELIQUIS5 M1 PO; +FIRVANQ50 MG/1 ML PO; +FLAGYL250 MG PO; +GLUCERNA 1.5 C237 ML PEG; +GOOD SENSE400 MG/5 M PO; +IMDUR SA30 MG PEG; +K-LOR 20MEQ20 ME1 PO; +LANTUS SOL100 UNIT/1 SQ; +LASIX40 MG PO; +LIPITOR10 MG PEG; +LISINOPRIL20 MG PO; +LOPRESSOR25 MG PEG; +LOPRESSOR25 MG PO; +Lantus SC; +MAGNESIUM400 M1 PO; +MICRO-GUARD85 GM T; +MIDODRINE HCL5 M1 PO; +NITRO-BID1 GM T; +NITROGLYCERIN0.4 MG SL; +NOVOLOG100 UNIT/1 SQ; +PACERONE200 MG PO; +PEPCID20 MG PEG; +PHOS-NAK PACKE1 EACH PO; +PLAVIX75 M1 PEG; +PREVALITE POWD231 GM PEG; +PROTONIX40 M1 IV; +PROTONIX40 M2 PO; +SINEMET 25-1001 EACH PEG; +Sinemet 25 MG-100 MG PO; +TEMAZEPAM15 M1 PO; +TIZANIDINE HCL2 MG PO; +TRAMADOL HCL50 MG PEG; +TYLENOL325 M1 PEG; +VITAMIN C500 M4 PEG; +VITAMIN D31000 UNI1 PEG; +XANAX0.25 MG PEG; +ZANAFLEX CAPSULE4 MG PO; +ZOFRAN4 MG PEG
== END 2018-09-14 14:38 | disposition home or self-care (01) ==
LOC: ED 12:18
DX: K94.23 Gastrostomy malfunction (principal); I11.0 Hypertensive heart disease with heart failure; I50.32 Chronic diastolic (congestive) heart failure; I48.91 Unspecified atrial fibrillation; I25.10 Atherosclerotic heart disease of native coronary artery without angina pectoris; E11.9 Type 2 diabetes mellitus without complications; I25.2 Old myocardial infarction; Z90.49 Acquired absence of other specified parts of digestive tract; Z88.1 Allergy status to other antibiotic agents; Z88.6 Allergy status to analgesic agent; Z88.0 Allergy status to penicillin; Z88.8 Allergy status to other drugs, medicaments and biological substances; Z79.899 Other long term (current) drug therapy; Z79.4 Long term (current) use of insulin; Z79.2 Long term (current) use of antibiotics

== ENCOUNTER 2018-09-18 07:51 | Emergency (ER) | payer MEDICARE ==
[~2018-09-18] VITALS: Wt 2.5 kg
== END 2018-09-18 08:40 ==
LOC: ED 07:51
DX: K94.29 Other complications of gastrostomy (principal); I48.91 Unspecified atrial fibrillation; I25.10 Atherosclerotic heart disease of native coronary artery without angina pectoris; E11.9 Type 2 diabetes mellitus without complications; I11.0 Hypertensive heart disease with heart failure; I50.32 Chronic diastolic (congestive) heart failure; I25.2 Old myocardial infarction; M19.90 Unspecified osteoarthritis, unspecified site; E66.9 Obesity, unspecified; G89.29 Other chronic pain; Z88.1 Allergy status to other antibiotic agents; Z88.6 Allergy status to analgesic agent; Z88.0 Allergy status to penicillin; Z79.899 Other long term (current) drug therapy